=== PATIENT | female | born 2000 | race Caucasian/White ===

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

== ENCOUNTER 2019-05-10 13:19 | Emergency (ER) | payer OTHER ==
[2019-05-10 13:29] VITALS: BP 110/73; PULSE 93; RESP 17; TEMP 97.8
[2019-05-10 14:18] LABS: Basophils # (A) 0.1 k/uL (0-0.2); Basophils % (A) 1 %; Eosinophils # (A) 0.2 k/uL (0-0.7); Eosinophils % (A) 1 %; HCT 38.4 % (34.0-46.0); HGB 12.7 gm/dL (11.4-16.0); Lymphocytes # (A) 2.1 k/uL (1.0-4.8); Lymphocytes % (A) 21 %; MCH 26.6 pg (25.0-35.0); MCV 80.5 fL (80.0-100.0); Mean Platelet Volume 6.3; Monocytes # (A) 0.6 k/uL (0-1.0); Monocytes % (A) 6 %; Neutrophils # (A) 7.1 k/uL (1.3-7.7); Neutrophils % (A) 70 %; Platelet Count 335 k/uL (150-450); RBC 4.77 m/uL (3.80-5.40); RDW 14.2 % (11.5-15.5); WBC 10.2 k/uL (4.0-11.0)
--- NOTE | 2019-05-10 15:01 | ED ---
Female Urogenital HPI - General Chief complaint: Vaginal Bleeding Stated complaint: Vaginal bleeding, Dizziness Time Seen by Provider: 05/10/19 13:40 Source: patient, RN notes reviewed, old records reviewed Mode of arrival: ambulatory Limitations: no limitations - History of Present Illness Initial comments: Patient is is a 18-year-old female presents today for abnormal menstrual cycle. She reports she's been having her period since 04/26/2019. She questions if she could possibly be and is miscarriage. Patient states that she has no significant pain. She also reports a history of BV and thought that she should just treat herself her bacterial vaginosis due to his prolonged bleeding. Patient states that she has been using Flagyl gel. She denies any abdominal pain, fevers or chills or dysuria. Last Menstrual Period: 04/26/19 - Related Data Allergies Allergy/AdvReac Type Severity Reaction Status Date / Time No Known Allergies Allergy Verified 08/01/18 14:13 Review of Systems ROS Statement: Those systems with pertinent positive or pertinent negative responses have been documented in the HPI. ROS Other: All systems not noted in ROS Statement are negative. Past Medical History Past Medical History: No Reported History History of Any Multi-Drug Resistant Organisms: None Reported Past Surgical History: No Surgical Hx Reported Past Psychological History: Anxiety Smoking Status: Never smoker Past Alcohol Use History: None Reported Past Drug Use History: None Reported General Exam Limitations: no limitations General appearance: alert, in no apparent distress Head exam: Present: atraumatic, normocephalic, normal inspection Eye exam: Present: normal appearance, PERRL, EOMI. Absent: scleral icterus, conjunctival injection, periorbital swelling ENT exam: Present: normal exam, mucous membranes moist Neck exam: Present: normal inspection Respiratory exam: Present: normal lung sounds bilaterally. Absent: respiratory distress, wheezes, rales, rhonchi, stridor Cardiovascular Exam: Present: regular rate, normal rhythm, normal heart sounds. Absent: systolic murmur, diastolic murmur, rubs, gallop, clicks GI/Abdominal exam: Present: soft, normal bowel sounds. Absent: distended, tenderness, guarding, rebound, rigid External exam: Present: normal external exam Speculum exam: Present: normal speculum exam, other (Drug blood in vaginal vault.) By manual exam: Present: normal by manual exam Extremities exam: Present: normal inspection, full ROM, normal capillary refill. Absent: tenderness, pedal edema, joint swelling, calf tenderness Back exam: Present: normal inspection Neurological exam: Present: alert, oriented X3, CN II-XII intact Psychiatric exam: Present: normal affect Skin exam: Present: warm, dry, intact, normal color. Absent: rash Course Vital Signs 05/10/19 13:26 Temperature 97.8 F Pulse Rate 93 Respiratory 17 Rate Blood Pressure 110/73 O2 Sat by Pulse 98 Oximetry Medical Decision Making - Medical Decision Making Patient is a 18-year-old female presents today for concern for prolonged vaginal bleeding. At this time patient's pelvic exam did show some dry blood. But no significant tenderness. No adnexal tenderness or abnormal discharge. HCG levels negative. Discussed the Patient is not and not miscarrying. Discusses just abnormal uterine bleeding. Discussed she can follow-up with her primary care doctor and NURSING ADMINISTRATOR. Patient is agreeable treatment plan and will comply. - Lab Data Result diagrams: 05/10/19 13:55 Lab Results 05/10/19 05/10/19 05/10/19 Range/Units 13:55 13:55 13:55 WBC 10.2 (4.0-11.0) k/uL RBC 4.77 (3.80-5.40) m/uL Hgb 12.7 (11.4-16.0) gm/dL Hct 38.4 (34.0-46.0) % MCV 80.5 (80.0-100.0) fL MCH 26.6 (25.0-35.0) pg MCHC 33.0 (31.0-37.0) g/dL RDW 14.2 (11.5-15.5) % Plt Count 335 (150-450) k/uL Neutrophils % 70 % Lymphocytes % 21 % Monocytes % 6 % Eosinophils % 1 % Basophils % 1 % Neutrophils # 7.1 (1.3-7.7) k/uL Lymphocytes # 2.1 (1.0-4.8) k/uL Monocytes # 0.6 (0-1.0) k/uL Eosinophils # 0.2 (0-0.7) k/uL Basophils # 0.1 (0-0.2) k/uL HCG, Quant <2.4 mIU/mL Urine HCG, Qual (Not Detectd) Trichomonas Ag (Rapid) (Negative) Blood Type O Positive Blood Type Recheck No Previous Record Bld Type Recheck Status No 05/10/19 05/10/19 Range/Units 14:00 14:00 WBC (4.0-11.0) k/uL RBC (3.80-5.40) m/uL Hgb (11.4-16.0) gm/dL Hct (34.0-46.0) % MCV (80.0-100.0) fL MCH (25.0-35.0) pg MCHC (31.0-37.0) g/dL RDW (11.5-15.5) % Plt Count (150-450) k/uL Neutrophils % % Lymphocytes % % Monocytes % % Eosinophils % % Basophils % % Neutrophils # (1.3-7.7) k/uL Lymphocytes # (1.0-4.8) k/uL Monocytes # (0-1.0) k/uL Eosinophils # (0-0.7) k/uL Basophils # (0-0.2) k/uL HCG, Quant mIU/mL Urine HCG, Qual Not Detected (Not Detectd) Trichomonas Ag (Rapid) Negative (Negative) Blood Type Blood Type Recheck Bld Type Recheck Status Disposition Clinical Impression: Abnormal uterine bleeding, Not currently Disposition: HOME SELF-CARE Condition: Good Instructions (If sedation given, give patient instructions): Dysfunctional Uterine Bleeding (ED) Additional Instructions: Patient advised to follow-up with your primary care doctor and NURSING ADMINISTRATOR. Return to the emergency department if any alarming signs or symptoms occur. Is patient prescribed a controlled substance at d/c from ED?: No Referrals: Garth Mcrae MD [Primary Care Provider] - 1-2 days Time of Disposition: 15:01
[2019-05-12 13:11] LABS: C. trachomatis,PCR Negative (Neg,Equiv); Chlamydia trachomatis Source Vagina
[2019-05-12 13:12] LABS: N. gonorrhoeae,PCR Negative (Neg,Equiv); Neisseria Source Vagina
== END 2019-05-10 15:12 | disposition home or self-care (01) ==
LOC: EC 13:19
DX: N93.9 Abnormal uterine and vaginal bleeding, unspecified (principal); Z32.02 Encounter for pregnancy test, result negative
CPT/HCPCS: 36415; 81025; 84702; 85025; 86900; 86901; 87070; 87491; 87591; 87808; 99284

== ENCOUNTER 2019-06-21 19:40 | Emergency (ER) | payer OTHER ==
[2019-06-21] MEDS ORDERED: SODIUM CHLORIDE 0.9% 1,000 ML IV ONE (20:53)
--- NOTE | 2019-06-21 21:21 | ED ---
General Adult HPI - General Chief complaint: Vaginal Bleeding Stated complaint: Vaginal Bleeding Time Seen by Provider: 06/21/19 20:33 Source: patient Mode of arrival: ambulatory Limitations: no limitations - History of Present Illness Initial comments: 18-year-old female patient presents to the emergency department today for evaluation of heavy vaginal bleeding. Patient states his been going on since March. Patient states she was evaluated about a month ago. States she follow-up with her primary care physician and requested control however they denied her request. Patient states she is attempting to get . Did have a negative test yesterday. States today that she feels increasingly weak, fatigued, and lethargic. States she is having some mild dizziness. She is concerned she may be bleeding too much. She does report passage of small frequent blood clots. States she does have some intermittent abdominal cramping but it is managed well with naproxen. She denies any history of bleeding disorder. Denies use of anticoagulant or antiplatelet medications. - Related Data Allergies Allergy/AdvReac Type Severity Reaction Status Date / Time No Known Allergies Allergy Verified 06/21/19 19:49 Review of Systems ROS Statement: Those systems with pertinent positive or pertinent negative responses have been documented in the HPI. ROS Other: All systems not noted in ROS Statement are negative. Past Medical History Past Medical History: No Reported History History of Any Multi-Drug Resistant Organisms: None Reported Past Surgical History: No Surgical Hx Reported Past Psychological History: Anxiety, PTSD Smoking Status: Never smoker Past Alcohol Use History: None Reported Past Drug Use History: None Reported General Exam Limitations: no limitations Course Vital Signs 06/21/19 06/21/19 06/21/19 19:46 21:00 23:44 Temperature 98.0 F 97.6 F Pulse Rate 90 80 81 Respiratory 20 18 18 Rate Blood Pressure 161/89 118/62 112/72 O2 Sat by Pulse 99 100 99 Oximetry Medical Decision Making - Medical Decision Making 18-year-old female patient presents to the emergency department today for evaluation of vaginal bleeding 3 months. Physical examination revealed soft nontender abdomen. Patient skin is pink warm and dry. Labs reviewed and are u nremarkable. She is not . Ultrasound shows left ovarian cyst. No other abnormalities noted. Patient vital signs are stable. I did discuss findings and results with her. She did just start control 2 days ago. We did discuss this as a method for bleeding control. She is instructed to follow- up with gynecology for further evaluation as soon as possible. Return parameters discussed in detail. She verbalizes understanding and agrees with this plan. - Lab Data Result diagrams: 06/21/19 22:15 06/21/19 22:15 Lab Results 06/21/19 06/21/19 06/21/19 Range/Units 22:15 22:15 22:15 WBC 11.6 H (4.0-11.0) k/uL RBC 4.49 (3.80-5.40) m/uL Hgb 11.7 (11.4-16.0) gm/dL Hct 35.8 (34.0-46.0) % MCV 79.7 L (80.0-100.0) fL MCH 26.1 (25.0-35.0) pg MCHC 32.8 (31.0-37.0) g/dL RDW 14.6 (11.5-15.5) % Plt Count 382 (150-450) k/uL Neutrophils % 73 % Lymphocytes % 19 % Monocytes % 5 % Eosinophils % 1 % Basophils % 1 % Neutrophils # 8.4 H (1.3-7.7) k/uL Lymphocytes # 2.2 (1.0-4.8) k/uL Monocytes # 0.6 (0-1.0) k/uL Eosinophils # 0.1 (0-0.7) k/uL Basophils # 0.1 (0-0.2) k/uL PT (9.0-12.0) sec INR (<1.2) APTT (22.0-30.0) sec Sodium 137 (137-145) mmol/L Potassium 4.0 (3.5-5.1) mmol/L Chloride 103 (98-107) mmol/L Carbon Dioxide 27 (22-30) mmol/L Anion Gap 7 mmol/L BUN 10 (7-17) mg/dL Creatinine 0.60 (0.52-1.04) mg/dL Est GFR (CKD-EPI)AfAm >90 (>60 ml/min/1.73 sqM) Est GFR (CKD-EPI)NonAf >90 (>60 ml/min/1.73 sqM) Glucose 116 H (74-99) mg/dL Calcium 9.3 (8.4-10.2) mg/dL Total Bilirubin 0.4 (0.2-1.3) mg/dL AST 18 (14-36) U/L ALT 17 (4-34) U/L Alkaline Phosphatase 94 (38-126) U/L Total Protein 6.6 (6.3-8.2) g/dL Albumin 3.8 (3.5-5.0) g/dL Urine Color Urine Appearance (Clear) Urine pH (5.0-8.0) Ur Specific Citra (1.001-1.035) Urine Protein (Negative) Urine Glucose (UA) (Negative) Urine Ketones (Negative) Urine Blood (Negative) Urine Nitrite (Negative) Urine Bilirubin (Negative) Urine Urobilinogen (<2.0) mg/dL Ur Leukocyte Esterase (Negative) Urine RBC (0-5) /hpf Urine WBC (0-5) /hpf Ur Squamous Epith Cells (0-4) /hpf Urine Bacteria (None) /hpf Urine Mucus (None) /hpf Urine HCG, Qual Not Detected (Not Detectd) 06/21/19 06/21/19 Range/Units 22:15 22:15 WBC (4.0-11.0) k/uL RBC (3.80-5.40) m/uL Hgb (11.4-16.0) gm/dL Hct (34.0-46.0) % MCV (80.0-100.0) fL MCH (25.0-35.0) pg MCHC (31.0-37.0) g/dL RDW (11.5-15.5) % Plt Count (150-450) k/uL Neutrophils % % Lymphocytes % % Monocytes % % Eosinophils % % Basophils % % Neutrophils # (1.3-7.7) k/uL Lymphocytes # (1.0-4.8) k/uL Monocytes # (0-1.0) k/uL Eosinophils # (0-0.7) k/uL Basophils # (0-0.2) k/uL PT 10.2 (9.0-12.0) sec INR 0.9 (<1.2) APTT 25.8 (22.0-30.0) sec Sodium (137-145) mmol/L Potassium (3.5-5.1) mmol/L Chloride (98-107) mmol/L Carbon Dioxide (22-30) mmol/L Anion Gap mmol/L BUN (7-17) mg/dL Creatinine (0.52-1.04) mg/dL Est GFR (CKD-EPI)AfAm (>60 ml/min/1.73 sqM) Est GFR (CKD-EPI)NonAf (>60 ml/min/1.73 sqM) Glucose (74-99) mg/dL Calcium (8.4-10.2) mg/dL Total Bilirubin (0.2-1.3) mg/dL AST (14-36) U/L ALT (4-34) U/L Alkaline Phosphatase (38-126) U/L Total Protein (6.3-8.2) g/dL Albumin (3.5-5.0) g/dL Urine Color Yellow Urine Appearance Cloudy H (Clear) Urine pH 7.5 (5.0-8.0) Ur Specific Citra 1.011 (1.001-1.035) Urine Protein Negative (Negative) Urine Glucose (UA) Negative (Negative) Urine Ketones Negative (Negative) Urine Blood Large H (Negative) Urine Nitrite Negative (Negative) Urine Bilirubin Negative (Negative) Urine Urobilinogen <2.0 (<2.0) mg/dL Ur Leukocyte Esterase Negative (Negative) Urine RBC 26 H (0-5) /hpf Urine WBC 2 (0-5) /hpf Ur Squamous Epith Cells 6 H (0-4) /hpf Urine Bacteria Rare H (None) /hpf Urine Mucus Rare H (None) /hpf Urine HCG, Qual (Not Detectd) - Radiology Data Radiology results: report reviewed, image reviewed Ultrasound was obtained. Report reviewed in its entirety. Impression by Dr. Yanes shows no evidence of ovarian torsion. Left ovarian cyst measuring up to 2 cm. No solid adnexal mass. Small complex endocervical canal could be blood clot measuring 6 mm. Disposition Clinical Impression: Dysfunctional uterine bleeding Disposition: HOME SELF-CARE Condition: Good Instructions (If sedation given, give patient instructions): Dysfunctional Uterine Bleeding (ED) Additional Instructions: Increase fluids. Consider taking a multivitamin with iron. Follow-up with the cardiac catheterization technologist for further evaluation as soon as possible. Return to the emergency department immediately for any new, worsening, or concerning symptoms. Is patient prescribed a controlled substance at d/c from ED?: No Referrals: Clementina,Garth, MD [Primary Care Provider] - 1-2 days Time of Disposition: 23:13
[2019-06-21 22:50] LABS: Basophils # (A) 0.1 k/uL (0-0.2); Basophils % (A) 1 %; Eosinophils # (A) 0.1 k/uL (0-0.7); Eosinophils % (A) 1 %; HCT 35.8 % (34.0-46.0); HGB 11.7 gm/dL (11.4-16.0); Lymphocytes # (A) 2.2 k/uL (1.0-4.8); Lymphocytes % (A) 19 %; MCH 26.1 pg (25.0-35.0); MCHC 32.8 g/dL (31.0-37.0); MCV 79.7 fL (80.0-100.0); Mean Platelet Volume 7.1; Monocytes # (A) 0.6 k/uL (0-1.0); Monocytes % (A) 5 %; Neutrophils # (A) 8.4 k/uL (1.3-7.7); Neutrophils % (A) 73 %; Platelet Count 382 k/uL (150-450); RBC 4.49 m/uL (3.80-5.40); RDW 14.6 % (11.5-15.5); WBC 11.6 k/uL (4.0-11.0)
[2019-06-21 22:53] LABS: Appearance,Urine Cloudy (Clear); Bacteria,Urine Rare /hpf; Bilirubin,Urine Negative (Negative); Blood,Urine Large (Negative); Color,Urine Yellow; Glucose,Urine (UA) Negative (Negative); Ketones,Urine Negative (Negative); Leukocyte Esterase,Urine Negative (Negative); Mucus,Urine Rare /hpf; Nitrite,Urine Negative (Negative); PH, Urine 7.5 (5.0-8.0); Protein,Urine Negative (Negative); RBC,Urine 26 /hpf (0-5); Specific Gravity,Urine 1.011 (1.001-1.035); Squamous Epithelial Cell,Urine 6 /hpf (0-4); Urobilinogen,Urine <2.0 mg/dL (<2.0); WBC,Urine 2 /hpf (0-5)
[2019-06-21 22:58] LABS: INR 0.9 (<1.2); Partial Thromboplastin Time 25.8 sec (22.0-30.0); Prothrombin Time 10.2 sec (9.0-12.0)
--- NOTE | 2019-06-21 23:01 | US ---
EXAMINATION TYPE: US transvaginal DATE OF EXAM: 06/21/2019 COMPARISON: NONE CLINICAL HISTORY: Vaginal bleeding. Vaginal bleeding x 3 months. Hx 2 miscarriages. LMP unknown. G2 P 0 A2. TECHNIQUE: Transvaginal (TV). Date of LMP: Unknown EXAM MEASUREMENTS: Uterus: 6.8 x 5.3 x 4.5 cm Endometrial Stripe: 0.48 cm Right Ovary: 3.4 x 2.2 x 2.3 cm Left Ovary: 3.3 x 2.9 x 3.2 cm 1. Uterus: Retroverted Complex area seen in the NORA measurin.7 x 0.7 x 0.7 cm. 2. Endometrium: Appears to be wnl 3. Right Ovary: Follicles seen 4. Left Ovary: Multiple anechoic areas seen. Largest measures: 1.7 x 1.4 x 2.4 cm. Spectral, color and waveform doppler imaging shows arterial and venous flow within the right ovary. Arterial flow seen in the left ovary. Limited evaluation of venous flow possibly due to position of ovary posterior to the uterus. 5. Bilateral Adnexa: Appear wnl 6. Posterior cul-de-sac: Fluid seen IMPRESSION: No evidence of ovarian torsion. Left ovary and cyst measure up to 2 cm. No solid adnexal mass. Small complex area in the cervical canal could be blood clot that measures 6 mm.
[2019-06-21 23:04] LABS: ALT 17 U/L (4-34); AST 18 U/L (14-36); African American GFR (CKD) >90 (>60 ml/min/1.73 sqM); Albumin 3.8 g/dL (3.5-5.0); Alkaline Phosphatase 94 U/L (38-126); Anion Gap 7 mmol/L; Blood Urea Nitrogen 10 mg/dL (7-17); Calcium 9.3 mg/dL (8.4-10.2); Carbon Dioxide 27 mmol/L (22-30); Chloride 103 mmol/L (98-107); Glucose 116 mg/dL (74-99); Non-African American GFR(CKD) >90 (>60 ml/min/1.73 sqM); Sodium 137 mmol/L (137-145); Total Bilirubin 0.4 mg/dL (0.2-1.3); Total Protein 6.6 g/dL (6.3-8.2)
[2019-06-21 23:44] VITALS: RESP 18; TEMP 97.6
[2019-06-21 23:45] VITALS: BP 112/72; PULSE 81
== END 2019-06-21 23:31 | disposition home or self-care (01) ==
LOC: EC 19:40
DX: N93.8 Other specified abnormal uterine and vaginal bleeding (principal); N83.202 Unspecified ovarian cyst, left side; R53.1 Weakness; Z79.3 Long term (current) use of hormonal contraceptives
CPT/HCPCS: 36415; 76830; 80053; 81001; 81025; 85025; 85610; 85730; 93975; 96360; 99284

== ENCOUNTER 2019-11-04 17:54 | Emergency (ER) | payer OTHER ==
[2019-11-04] MEDS ORDERED: LORazepam 1 MG TAB PO STA (18:34)
--- NOTE | 2019-11-04 18:38 | ED ---
General Adult HPI - General Chief complaint: Chest Pain Stated complaint: SOB/heart spasms Time Seen by Provider: 11/04/19 18:11 Source: patient, RN notes reviewed, old records reviewed Mode of arrival: ambulatory Limitations: no limitations - History of Present Illness Initial comments: 19-year-old female patient with the for evaluation of palpitations shortness of breath anxiety. 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 Patient reports that she then became very anxious and started having heart palpitations. At time of evaluation patient states that she is feeling much better however still feeling anxious. Systemic: Pt denies fatigue, fever/chills, rash. Pt denies weakness, night sweats, weight loss. Neuro: Pt denies headache, visual disturbances, syncope or pre-syncope. HEENT: Pt denies ocular discharge or irritation, otalgia, rhinorrhea, pharyngitis or notable lymphadenopathy. Cardiopulmonary: Pt denies chest pain,dyspnea on exertion. Abdominal/GI: Pt denies abdominal pain, n/v/d. : Pt denies dysuria, burning w/ urination, frequency/urgency. Denies new onset urinary or bowel incontinence. MSK: Pt denies myalgia, loss of strength or function in extremities. Neuro: Pt denies new onset weakness, paresthesias. - Related Data Allergies Allergy/AdvReac Type Severity Reaction Status Date / Time No Known Allergies Allergy Verified 11/04/19 18:05 Review of Systems ROS Statement: Those systems with pertinent positive or pertinent negative responses have been documented in the HPI. ROS Other: All systems not noted in ROS Statement are negative. Past Medical History Past Medical History: No Reported History History of Any Multi-Drug Resistant Organisms: None Reported Past Surgical History: No Surgical Hx Reported Past Psychological History: Anxiety, PTSD Smoking Status: Never smoker Past Alcohol Use History: None Reported Past Drug Use History: None Reported General Exam - General Exam Comments Initial Comments: Constitutional: NAD, AOX3, Pt has pleasant affect. HEENT: NC/AT, trachea midline, neck supple, no lymphadenopathy. Posterior pharynx non erythematous, without exudates. External ears appear normal, without discharge. Mucous membranes moist. Eyes PERRLA, EOM intact. There is no scleral icterus. No pallor noted. Cardiopulmonary: RRR, no murmurs, rubs or gallops, no JVD noted. Lungs CTAB in anterior and posterior frye. No peripheral edema. Abdominal exam: Abdomen soft and non-distended. Abdomen non-tender to palpation in all 4 quadrants. Bowel sounds active in LLQ. No hepatosplenomegaly. No ecchymosis Neuro: CN II-XII grossly intact. No nuchal rigidity. No raccon eyes, no avina sign, no hemotympanum. No cervical spinal tenderness. MSK: No posterior calf tenderness bilaterally, homans sign negative bilaterally. Posterior tibialis and radial pulse +2 bilaterally. Sensation intact in upper and lower extremities. Full active ROM in upper and lower extremities, 5/5 stregnth. Limitations: no limitations Course Vital Signs 11/04/19 11/04/19 18:05 18:37 Temperature 98.8 F Pulse Rate 93 Respiratory 22 16 Rate Blood Pressure 129/79 O2 Sat by Pulse 100 Oximetry Medical Decision Making - Medical Decision Making 19-year-old female patient with the for evaluation of palpitations shortness of breath anxiety. 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 Patient reports that she then became very anxious and started having heart palpitations. At time of evaluation patient states that she is feeling much better however still feeling anxious. Patient also has a stable, afebrile. Physical exam didn't display acute pathology. Laboratory investigations revealed negative d-dimer negative for pulmonary hCG is negative. EKG displayed a ventricular rate 85 Year and 148, QRS 98, QT/QTC 384 since 456. Normal sensory rhythm, incomplete right branch block. Cannot rule out anterior infarct age undetermined. Patient asymptomatic in room. Discharged to follow up with primary care provider will return to ER if worsens. Case discussed with Dr. Milian. - Lab Data Result diagrams: 11/04/19 20:42 11/04/19 20:42 Lab Results 11/04/19 11/04/19 11/04/19 Range/Units 20:42 20:42 20:42 WBC 10.3 (4.0-11.0) k/uL RBC 4.79 (3.80-5.40) m/uL Hgb 12.3 (11.4-16.0) gm/dL Hct 38.2 (34.0-46.0) % MCV 79.6 L (80.0-100.0) fL MCH 25.6 (25.0-35.0) pg MCHC 32.2 (31.0-37.0) g/dL RDW 15.2 (11.5-15.5) % Plt Count 339 (150-450) k/uL Neutrophils % 77 % Lymphocytes % 17 % Monocytes % 4 % Eosinophils % 1 % Basophils % 0 % Neutrophils # 7.9 H (1.3-7.7) k/uL Lymphocytes # 1.8 (1.0-4.8) k/uL Monocytes # 0.4 (0-1.0) k/uL Eosinophils # 0.1 (0-0.7) k/uL Basophils # 0.0 (0-0.2) k/uL Hypochromasia Slight D-Dimer <0.17 (<0.60) mg/L FEU Sodium 138 (137-145) mmol/L Potassium 4.2 (3.5-5.1) mmol/L Chloride 105 (98-107) mmol/L Carbon Dioxide 24 (22-30) mmol/L Anion Gap 9 mmol/L BUN 13 (7-17) mg/dL Creatinine 0.77 (0.52-1.04) mg/dL Est GFR (CKD-EPI)AfAm >90 (>60 ml/min/1.73 sqM) Est GFR (CKD-EPI)NonAf >90 (>60 ml/min/1.73 sqM) Glucose 104 H (74-99) mg/dL Calcium 9.4 (8.4-10.2) mg/dL Total Bilirubin 0.1 L (0.2-1.3) mg/dL AST 15 (14-36) U/L ALT 15 (4-34) U/L Alkaline Phosphatase 85 (38-126) U/L Troponin I (0.000-0.034) ng/mL Total Protein 6.7 (6.3-8.2) g/dL Albumin 3.7 (3.5-5.0) g/dL Urine HCG, Qual (Not Detectd) 11/04/19 11/04/19 Range/Units 20:42 21:18 WBC (4.0-11.0) k/uL RBC (3.80-5.40) m/uL Hgb (11.4-16.0) gm/dL Hct (34.0-46.0) % MCV (80.0-100.0) fL MCH (25.0-35.0) pg MCHC (31.0-37.0) g/dL RDW (11.5-15.5) % Plt Count (150-450) k/uL Neutrophils % % Lymphocytes % % Monocytes % % Eosinophils % % Basophils % % Neutrophils # (1.3-7.7) k/uL Lymphocytes # (1.0-4.8) k/uL Monocytes # (0-1.0) k/uL Eosinophils # (0-0.7) k/uL Basophils # (0-0.2) k/uL Hypochromasia D-Dimer (<0.60) mg/L FEU Sodium (137-145) mmol/L Potassium (3.5-5.1) mmol/L Chloride (98-107) mmol/L Carbon Dioxide (22-30) mmol/L Anion Gap mmol/L BUN (7-17) mg/dL Creatinine (0.52-1.04) mg/dL Est GFR (CKD-EPI)AfAm (>60 ml/min/1.73 sqM) Est GFR (CKD-EPI)NonAf (>60 ml/min/1.73 sqM) Glucose (74-99) mg/dL Calcium (8.4-10.2) mg/dL Total Bilirubin (0.2-1.3) mg/dL AST (14-36) U/L ALT (4-34) U/L Alkaline Phosphatase (38-126) U/L Troponin I <0.012 (0.000-0.034) ng/mL Total Protein (6.3-8.2) g/dL Albumin (3.5-5.0) g/dL Urine HCG, Qual Not Detected (Not Detectd) Disposition Clinical Impression: Acute anxiety Disposition: HOME SELF-CARE Condition: Stable Instructions (If sedation given, give patient instructions): Generalized Anxiety Disorder (ED) Additional Instructions: Follow-up with primary care provider tomorrow. Return to ER if condition worsens. Is patient prescribed a controlled substance at d/c from ED?: No Referrals: Garth Mcrae MD [Primary Care Provider] - 1-2 days
--- NOTE | 2019-11-04 19:36 | XR ---
EXAMINATION TYPE: XR chest 2V DATE OF EXAM: 11/04/2019 COMPARISON: NONE HISTORY: Shortest of breath TECHNIQUE: Frontal and lateral views of the chest are obtained. FINDINGS: There is no focal air space opacity, pleural effusion, or pneumothorax seen. Slight right hemidiaphragm elevation is seen that could be physiologic or related to hepatomegaly. The cardiac si lhouette size is within normal limits. The osseous structures are intact. IMPRESSION: No acute cardiopulmonary process.
[2019-11-04 20:51] LABS: Basophils % (A) 0 %; Eosinophils # (A) 0.1 k/uL (0-0.7); Eosinophils % (A) 1 %; HCT 38.2 % (34.0-46.0); HGB 12.3 gm/dL (11.4-16.0); Hypochromasia Slight; Lymphocytes # (A) 1.8 k/uL (1.0-4.8); Lymphocytes % (A) 17 %; MCH 25.6 pg (25.0-35.0); MCHC 32.2 g/dL (31.0-37.0); MCV 79.6 fL (80.0-100.0); Mean Platelet Volume 7.2; Monocytes # (A) 0.4 k/uL (0-1.0); Monocytes % (A) 4 %; Neutrophils # (A) 7.9 k/uL (1.3-7.7); Neutrophils % (A) 77 %; Platelet Count 339 k/uL (150-450); RBC 4.79 m/uL (3.80-5.40); RDW 15.2 % (11.5-15.5); WBC 10.3 k/uL (4.0-11.0)
[2019-11-04 21:03] LABS: ALT 15 U/L (4-34); AST 15 U/L (14-36); African American GFR (CKD) >90 (>60 ml/min/1.73 sqM); Albumin 3.7 g/dL (3.5-5.0); Alkaline Phosphatase 85 U/L (38-126); Anion Gap 9 mmol/L; Blood Urea Nitrogen 13 mg/dL (7-17); Calcium 9.4 mg/dL (8.4-10.2); Carbon Dioxide 24 mmol/L (22-30); Chloride 105 mmol/L (98-107); Glucose 104 mg/dL (74-99); Non-African American GFR(CKD) >90 (>60 ml/min/1.73 sqM); Potassium 4.2 mmol/L (3.5-5.1); Sodium 138 mmol/L (137-145); Total Bilirubin 0.1 mg/dL (0.2-1.3); Total Protein 6.7 g/dL (6.3-8.2)
[2019-11-04 22:38] VITALS: BP 104/67; PULSE 87; RESP 18; TEMP 98
== END 2019-11-04 22:38 | disposition home or self-care (01) ==
LOC: EC 17:54
DX: F41.9 Anxiety disorder, unspecified (principal)
CPT/HCPCS: 36415; 71046; 80053; 81025; 84484; 85025; 85379; 99285

== ENCOUNTER 2021-04-30 11:23 | Emergency (ER) | payer OTHER ==
[2021-04-30 12:44] LABS: Appearance,Urine Clear (Clear); Bilirubin,Urine Negative (Negative); Blood,Urine Large (Negative); Color,Urine Yellow; Glucose,Urine (UA) Negative (Negative); Ketones,Urine Negative (Negative); Leukocyte Esterase,Urine Negative (Negative); Mucus,Urine Rare /hpf; Nitrite,Urine Negative (Negative); PH, Urine 5.5 (5.0-8.0); Protein,Urine Negative (Negative); RBC,Urine 6 /hpf (0-5); Specific Gravity,Urine 1.023 (1.001-1.035); Squamous Epithelial Cell,Urine 3 /hpf (0-4); Urobilinogen,Urine <2.0 mg/dL (<2.0); WBC,Urine 1 /hpf (0-5)
--- NOTE | 2021-04-30 14:34 | ED ---
General Adult HPI - General Chief complaint: Vaginal Bleeding Stated complaint: Female Time Seen by Provider: 04/30/21 13:54 Source: patient, RN notes reviewed Mode of arrival: EMS Limitations: no limitations - History of Present Illness Initial comments: 20-year-old female presents emergency from chief complaint of vaginal bleeding. Patient states that she's had issues since March 14 with continuous bleeding. She states that does wax and wane patient had issues like this in the past which she follow-up with the health Department next started her on control. It did subside. Patient states she recently stopped taking her control secondary to 1 started family. Patient is having intermittent abdominal cramping mild dysuria. No vaginal discharge. - Related Data Home Medications Medication Instructions Recorded Confirmed Ibuprofen [Motrin] 800 mg PO Q8H 04/30/21 04/30/21 Levothyroxine Sodium [Synthroid] 25 mcg PO DAILY 04/30/21 04/30/21 Previous Rx's Medication Instructions Recorded Medroxyprogesterone Acetate 10 mg PO DAILY #4 tab 04/30/21 [Provera] Allergies Allergy/AdvReac Type Severity Reaction Status Date / Time acetaminophen [From Tylenol] AdvReac "PASSES Verified 04/30/21 14:19 OUT" Review of Systems ROS Statement: Those systems with pertinent positive or pertinent negative responses have been documented in the HPI. ROS Other: All systems not noted in ROS Statement are negative. Past Medical History Past Medical History: Thyroid Disorder History of Any Multi-Drug Resistant Organisms: None Reported Past Surgical History: No Surgical Hx Reported Past Psychological History: Anxiety, PTSD Smoking Status: Vaper Past Alcohol Use History: None Reported Past Drug Use History: None Reported General Exam Limitations: no limitations General appearance: alert, in no apparent distress Head exam: Present: atraumatic, normocephalic, normal inspection Eye exam: Present: normal appearance, PERRL, EOMI. Absent: scleral icterus, conjunctival injection, periorbital swelling ENT exam: Present: normal exam, mucous membranes moist Neck exam: Present: normal inspection, full ROM. Absent: tenderness, meningismus, lymphadenopathy Respiratory exam: Present: normal lung sounds bilaterally. Absent: respiratory distress, wheezes, rales, rhonchi, stridor Cardiovascular Exam: Present: regular rate, normal rhythm, normal heart sounds. Absent: systolic murmur, diastolic murmur, rubs, gallop, clicks GI/Abdominal exam: Present: soft, normal bowel sounds. Absent: distended, tenderness, guarding, rebound, rigid Course Vital Signs 04/30/21 12:19 Temperature 97.5 F L Pulse Rate 63 Respiratory 20 Rate Blood Pressure 107/60 O2 Sat by Pulse 96 Oximetry Medical Decision Making - Medical Decision Making 20-year-old female presented for dysfunctional uterine bleeding. This has been present for over 6 weeks. Patient's hemoglobin is stable. Patient wasn't -control prior which helped. 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 - Lab Data Result diagrams: 04/30/21 15:15 04/30/21 15:15 Lab Results 04/30/21 04/30/21 04/30/21 Range/Units 12:29 12:29 15:15 WBC 11.4 H (3.8-10.6) k/uL RBC 4.63 (3.80-5.40) m/uL Hgb 12.5 (11.4-16.0) gm/dL Hct 37.8 (34.0-46.0) % MCV 81.6 (80.0-100.0) fL MCH 27.1 (25.0-35.0) pg MCHC 33.2 (31.0-37.0) g/dL RDW 14.6 (11.5-15.5) % Plt Count 301 (150-450) k/uL MPV 7.1 Neutrophils % 69 % Lymphocytes % 25 % Monocytes % 4 % Eosinophils % 1 % Basophils % 1 % Neutrophils # 7.8 H (1.3-7.7) k/uL Lymphocytes # 2.8 (1.0-4.8) k/uL Monocytes # 0.4 (0-1.0) k/uL Eosinophils # 0.1 (0-0.7) k/uL Basophils # 0.1 (0-0.2) k/uL Sodium (137-145) mmol/L Potassium (3.5-5.1) mmol/L Chloride (98-107) mmol/L Carbon Dioxide (22-30) mmol/L Anion Gap mmol/L BUN (7-17) mg/dL Creatinine (0.52-1.04) mg/dL Est GFR (CKD-EPI)AfAm (>60 ml/min/1.73 sqM) Est GFR (CKD-EPI)NonAf (>60 ml/min/1.73 sqM) Glucose (74-99) mg/dL Calcium (8.4-10.2) mg/dL Total Bilirubin (0.2-1.3) mg/dL AST (14-36) U/L ALT (4-34) U/L Alkaline Phosphatase (38-126) U/L Total Protein (6.3-8.2) g/dL Albumin (3.5-5.0) g/dL Urine Color Yellow Urine Appearance Clear (Clear) Urine pH 5.5 (5.0-8.0) Ur Specific [place] 1.023 (1.001-1.035) Urine Protein Negative (Negative) Urine Glucose (UA) Negative (Negative) Urine Ketones Negative (Negative) Urine Blood Large H (Negative) Urine Nitrite Negative (Negative) Urine Bilirubin Negative (Negative) Urine Urobilinogen <2.0 (<2.0) mg/dL Ur Leukocyte Esterase Negative (Negative) Urine RBC 6 H (0-5) /hpf Urine WBC 1 (0-5) /hpf Ur Squamous Epith Cells 3 (0-4) /hpf Urine Mucus Rare H (None) /hpf Urine HCG, Qual Not Detected (Not Detectd) 04/30/21 Range/Units 15:15 WBC (3.8-10.6) k/uL RBC (3.80-5.40) m/uL Hgb (11.4-16.0) gm/dL Hct (34.0-46.0) % MCV (80.0-100.0) fL MCH (25.0-35.0) pg MCHC (31.0-37.0) g/dL RDW (11.5-15.5) % Plt Count (150-450) k/uL MPV Neutrophils % % Lymphocytes % % Monocytes % % Eosinophils % % Basophils % % Neutrophils # (1.3-7.7) k/uL Lymphocytes # (1.0-4.8) k/uL Monocytes # (0-1.0) k/uL Eosinophils # (0-0.7) k/uL Basophils # (0-0.2) k/uL Sodium 134 L (137-145) mmol/L Potassium 3.8 (3.5-5.1) mmol/L Chloride 101 (98-107) mmol/L Carbon Dioxide 26 (22-30) mmol/L Anion Gap 7 mmol/L BUN 11 (7-17) mg/dL Creatinine 0.55 (0.52-1.04) mg/dL Est GFR (CKD-EPI)AfAm >90 (>60 ml/min/1.73 sqM) Est GFR (CKD-EPI)NonAf >90 (>60 ml/min/1.73 sqM) Glucose 97 (74-99) mg/dL Calcium 9.0 (8.4-10.2) mg/dL Total Bilirubin 0.3 (0.2-1.3) mg/dL AST 19 (14-36) U/L ALT 21 (4-34) U/L Alkaline Phosphatase 86 (38-126) U/L Total Protein 6.6 (6.3-8.2) g/dL Albumin 3.7 (3.5-5.0) g/dL Urine Color Urine Appearance (Clear) Urine pH (5.0-8.0) Ur Specific [place] (1.001-1.035) Urine Protein (Negative) Urine Glucose (UA) (Negative) Urine Ketones (Negative) Urine Blood (Negative) Urine Nitrite (Negative) Urine Bilirubin (Negative) Urine Urobilinogen (<2.0) mg/dL Ur Leukocyte Esterase (Negative) Urine RBC (0-5) /hpf Urine WBC (0-5) /hpf Ur Squamous Epith Cells (0-4) /hpf Urine Mucus (None) /hpf Urine HCG, Qual (Not Detectd) Disposition Clinical Impression: Dysfunctional uterine bleeding Disposition: HOME SELF-CARE Condition: Stable Instructions (If sedation given, give patient instructions): Dysfunctional Uterine Bleeding (ED) Additional Instructions: Please return to the Emergency Department if symptoms worsen or any other ana rns. Prescriptions: Medroxyprogesterone Acetate [Provera] 10 mg PO DAILY #4 tab Is patient prescribed a controlled substance at d/c from ED?: No Referrals: Arabella Harrison MD [Primary Care Provider] - 1-2 days Time of Disposition: 16:00
[2021-04-30 15:29] LABS: Basophils # (A) 0.1 k/uL (0-0.2); Basophils % (A) 1 %; Eosinophils # (A) 0.1 k/uL (0-0.7); Eosinophils % (A) 1 %; HCT 37.8 % (34.0-46.0); HGB 12.5 gm/dL (11.4-16.0); Lymphocytes # (A) 2.8 k/uL (1.0-4.8); Lymphocytes % (A) 25 %; MCH 27.1 pg (25.0-35.0); MCHC 33.2 g/dL (31.0-37.0); MCV 81.6 fL (80.0-100.0); Mean Platelet Volume 7.1; Monocytes # (A) 0.4 k/uL (0-1.0); Monocytes % (A) 4 %; Neutrophils # (A) 7.8 k/uL (1.3-7.7); Neutrophils % (A) 69 %; Platelet Count 301 k/uL (150-450); RBC 4.63 m/uL (3.80-5.40); RDW 14.6 % (11.5-15.5); WBC 11.4 k/uL (3.8-10.6)
[2021-04-30 15:45] LABS: ALT 21 U/L (4-34); AST 19 U/L (14-36); African American GFR (CKD) >90 (>60 ml/min/1.73 sqM); Albumin 3.7 g/dL (3.5-5.0); Alkaline Phosphatase 86 U/L (38-126); Anion Gap 7 mmol/L; Blood Urea Nitrogen 11 mg/dL (7-17); Carbon Dioxide 26 mmol/L (22-30); Chloride 101 mmol/L (98-107); Glucose 97 mg/dL (74-99); Non-African American GFR(CKD) >90 (>60 ml/min/1.73 sqM); Potassium 3.8 mmol/L (3.5-5.1); Sodium 134 mmol/L (137-145); Total Bilirubin 0.3 mg/dL (0.2-1.3); Total Protein 6.6 g/dL (6.3-8.2)
--- NOTE | 2021-04-30 15:45 | US ---
EXAMINATION TYPE: US transvaginal Plus Dopplers DATE OF EXAM: 04/30/2021 COMPARISON: NONE CLINICAL HISTORY: 20-year-old female abnormal bleeding. Heavy bleeding since 03/14/2021, history of h eavy/irregular menstruation. TECHNIQUE: Transvaginal sonographic images were medically necessary to better assess the following an atomy: Ovaries. Color Doppler and spectral waveform analysis of the ovarian arteries and veins. Date of LMP: 03/14/2021 FINDINGS: EXAM MEASUREMENTS: Uterus: 7.1 x 5.2 x 4.3 cm Endometrial Stripe: 0.9 cm Right Ovary: 3.23 x 2.6 x 2.8 cm Left Ovary: 2.9 x 2.3 x 1.7 cm 1. Uterus: Retroverted an otherwise wnl 2. Endometrium: wnl 3. Right Ovary: A 2.1 cm dominant follicle with a cumulus oophorus is present. 4. Left Ovary: wnl Spectral, color and waveform doppler imaging shows good arterial and venous flow within the ovaries ; there is no evidence for ovarian torsion. 5. Bilateral Adnexa: wnl 6. Posterior cul-de-sac: wnl IMPRESSION: 1. No sonographic evidence for ovarian torsion. 2. A 2.1 cm dominant follicle of the right ovary. 3. Retroverted uterus.
[2021-04-30 16:30] VITALS: BP 110/68; PULSE 72; RESP 17; TEMP 97.8
== END 2021-04-30 16:28 | disposition home or self-care (01) ==
LOC: EC 11:23
DX: N93.8 Other specified abnormal uterine and vaginal bleeding (principal); F17.290 Nicotine dependence, other tobacco product, uncomplicated
CPT/HCPCS: 36415; 76830; 80053; 81001; 81025; 85025; 93975; 99284

== ENCOUNTER 2021-05-11 21:12 | Emergency (ER) | payer OTHER ==
[2021-05-11 23:09] VITALS: BP 110/57; PULSE 92; RESP 18; TEMP 98
--- NOTE | 2021-05-11 23:10 | ED ---
General Adult HPI - General Stated complaint: Heavy bleeding Time Seen by Provider: 05/11/21 23:04 - History of Present Illness Initial comments: Seen for purposes of ATP: 20 year-old female patient presents for evaluation of heavy vaginal bleeding. States she has been having bleeding for the last 8 weeks. Was seen here 11 days ago and put on depo provera for four days. States she did see her primary care physician since then who started her on c ontrol. Started taking it two days ago. She states this made her bleeding worse. Reports mild abdominal cramping. Denies fever or chills. Reports headache throughout the day. States she has been fatigued. Reports mild dizziness. Soaked through one pad all day today. Did have negative test at [facility] today. - Related Data Home Medications Medication Instructions Recorded Confirmed Ibuprofen [Motrin] 800 mg PO Q8H 04/30/21 04/30/21 Levothyroxine Sodium [Synthroid] 25 mcg PO DAILY 04/30/21 04/30/21 Previous Rx's Medication Instructions Recorded Medroxyprogesterone Acetate 10 mg PO DAILY #4 tab 04/30/21 [Provera] Allergies Allergy/AdvReac Type Severity Reaction Status Date / Time acetaminophen [From Tylenol] AdvReac "PASSES Verified 05/11/21 23:09 OUT" Review of Systems ROS Statement: Those systems with pertinent positive or pertinent negative responses have been documented in the HPI. ROS Other: All systems not noted in ROS Statement are negative. Past Medical History Past Medical History: Thyroid Disorder History of Any Multi-Drug Resistant Organisms: None Reported Past Surgical History: No Surgical Hx Reported Past Psychological History: Anxiety, PTSD Smoking Status: Vaper Past Alcohol Use History: None Reported Past Drug Use History: None Reported General Exam General appearance: alert, in no apparent distress ENT exam: Present: normal exam, normal oropharynx, mucous membranes moist Respiratory exam: Present: normal lung sounds bilaterally. Absent: respiratory distress, wheezes, rales, rhonchi, stridor Cardiovascular Exam: Present: regular rate, normal rhythm, normal heart sounds. Absent: systolic murmur, diastolic murmur, rubs, gallop, clicks GI/Abdominal exam: Present: soft, normal bowel sounds. Absent: distended, tenderness, guarding, rebound, rigid Neurological exam: Present: alert, oriented X3, CN II-XII intact Psychiatric exam: Present: normal affect, normal mood Skin exam: Present: warm, dry, intact, normal color. Absent: rash Course Vital Signs 05/11/21 23:03 Temperature 98.0 F Pulse Rate 92 Respiratory 18 Rate Blood Pressure 110/57 O2 Sat by Pulse 97 Oximetry Medical Decision Making - Medical Decision Making 20-year-old female patient presents to the emergency department today for evaluation of persistent vaginal bleeding. Has been having vaginal bleeding for the last 8 weeks. Did see her primary care physician was started on a new control. She is taken for 2 days and states that her bleeding seems worsening. She has been passing course size clots. Was wearing the same pad all day, did not soak through. She denies physical examination is unremarkable. Vital signs are normal. I did discuss results of labs with her which included a normal and stable hemoglobin. She'll be discharged follow up with OUTPATIENT SCHEDULER for recheck as soon as possible. She is instructed to continue the current control regimen. Return parameters were discussed in detail. She verbalizes understanding and agrees with this plan. My attending is Dr. Foss. - Lab Data Result diagrams: 05/11/21 23:18 Lab Results 05/11/21 05/11/21 05/11/21 Range/Units 23:15 23:18 23:18 WBC 12.9 H (3.8-10.6) k/uL RBC 4.38 (3.80-5.40) m/uL Hgb 12.1 (11.4-16.0) gm/dL Hct 35.0 (34.0-46.0) % MCV 79.8 L (80.0-100.0) fL MCH 27.7 (25.0-35.0) pg MCHC 34.6 (31.0-37.0) g/dL RDW 14.5 (11.5-15.5) % Plt Count 318 (150-450) k/uL MPV 7.1 Neutrophils % 69 % Lymphocytes % 25 % Monocytes % 4 % Eosinophils % 1 % Basophils % 0 % Neutrophils # 8.9 H (1.3-7.7) k/uL Lymphocytes # 3.2 (1.0-4.8) k/uL Monocytes # 0.5 (0-1.0) k/uL Eosinophils # 0.2 (0-0.7) k/uL Basophils # 0.1 (0-0.2) k/uL PT 10.3 (9.0-12.0) sec INR 1.0 (<1.2) APTT 23.4 (22.0-30.0) sec Urine Color Urine Appearance (Clear) Urine pH (5.0-8.0) Ur Specific [place] (1.001-1.035) Urine Protein (Negative) Urine Glucose (UA) (Negative) Urine Ketones (Negative) Urine Blood (Negative) Urine Nitrite (Negative) Urine Bilirubin (Negative) Urine Urobilinogen (<2.0) mg/dL Ur Leukocyte Esterase (Negative) Urine RBC (0-5) /hpf Urine WBC (0-5) /hpf Ur Squamous Epith Cells (0-4) /hpf Urine Mucus (None) /hpf Urine HCG, Qual (Not Detectd) Blood Type O Positive Blood Type Recheck O Pos Bld Type Recheck Status No Antibody Screen NEGATIVE Spec Expiration Date 05/14/2021 - 231405/11/21 05/11/21 Range/Units 23:31 23:31 WBC (3.8-10.6) k/uL RBC (3.80-5.40) m/uL Hgb (11.4-16.0) gm/dL Hct (34.0-46.0) % MCV (80.0-100.0) fL MCH (25.0-35.0) pg MCHC (31.0-37.0) g/dL RDW (11.5-15.5) % Plt Count (150-450) k/uL MPV Neutrophils % % Lymphocytes % % Monocytes % % Eosinophils % % Basophils % % Neutrophils # (1.3-7.7) k/uL Lymphocytes # (1.0-4.8) k/uL Monocytes # (0-1.0) k/uL Eosinophils # (0-0.7) k/uL Basophils # (0-0.2) k/uL PT (9.0-12.0) sec INR (<1.2) APTT (22.0-30.0) sec Urine Color Light Red Urine Appearance Clear (Clear) Urine pH 5.5 (5.0-8.0) Ur Specific [place] 1.022 (1.001-1.035) Urine Protein 1+ H (Negative) Urine Glucose (UA) Negative (Negative) Urine Ketones Negative (Negative) Urine Blood Large H (Negative) Urine Nitrite Negative (Negative) Urine Bilirubin Negative (Negative) Urine Urobilinogen <2.0 (<2.0) mg/dL Ur Leukocyte Esterase Moderate H (Negative) Urine RBC >182 H (0-5) /hpf Urine WBC 166 H (0-5) /hpf Ur Squamous Epith Cells 5 H (0-4) /hpf Urine Mucus Rare H (None) /hpf Urine HCG, Qual Not Detected (Not Detectd) Blood Type Blood Type Recheck Bld Type Recheck Status Antibody Screen Spec Expiration Date Disposition Clinical Impression: Dysfunctional uterine bleeding Disposition: HOME SELF-CARE Condition: Good Instructions (If sedation given, give patient instructions): Dysfunctional Uterine Bleeding (ED) Additional Instructions: Follow up with the OBGYN as soon as possible. Return if you have increased bleeding like soaking through a pad every hour. Return for any fainting. Follow up with your primary care physician for recheck in 1-2 days. Is patient prescribed a controlled substance at d/c from ED?: No Referrals: Arabella Harrison MD [Primary Care Provider] - 1-2 days Time of Disposition: 00:51
[2021-05-11 23:33] LABS: Basophils # (A) 0.1 k/uL (0-0.2); Basophils % (A) 0 %; Eosinophils # (A) 0.2 k/uL (0-0.7); Eosinophils % (A) 1 %; HGB 12.1 gm/dL (11.4-16.0); Lymphocytes # (A) 3.2 k/uL (1.0-4.8); Lymphocytes % (A) 25 %; MCH 27.7 pg (25.0-35.0); MCHC 34.6 g/dL (31.0-37.0); MCV 79.8 fL (80.0-100.0); Mean Platelet Volume 7.1; Monocytes # (A) 0.5 k/uL (0-1.0); Monocytes % (A) 4 %; Neutrophils # (A) 8.9 k/uL (1.3-7.7); Neutrophils % (A) 69 %; Platelet Count 318 k/uL (150-450); RBC 4.38 m/uL (3.80-5.40); RDW 14.5 % (11.5-15.5); WBC 12.9 k/uL (3.8-10.6)
[2021-05-11 23:55] LABS: Appearance,Urine Clear (Clear); Bilirubin,Urine Negative (Negative); Blood,Urine Large (Negative); Color,Urine Light Red; Glucose,Urine (UA) Negative (Negative); Ketones,Urine Negative (Negative); Leukocyte Esterase,Urine Moderate (Negative); Mucus,Urine Rare /hpf; Nitrite,Urine Negative (Negative); PH, Urine 5.5 (5.0-8.0); Protein,Urine 1+ (Negative); RBC,Urine >182 /hpf (0-5); Specific Gravity,Urine 1.022 (1.001-1.035); Squamous Epithelial Cell,Urine 5 /hpf (0-4); Urobilinogen,Urine <2.0 mg/dL (<2.0); WBC,Urine 166 /hpf (0-5)
[2021-05-12 00:06] LABS: Partial Thromboplastin Time 23.4 sec (22.0-30.0); Prothrombin Time 10.3 sec (9.0-12.0)
== END 2021-05-12 01:02 | disposition home or self-care (01) ==
LOC: EC 21:12
DX: N93.8 Other specified abnormal uterine and vaginal bleeding (principal); F41.9 Anxiety disorder, unspecified; F43.10 Post-traumatic stress disorder, unspecified; F17.290 Nicotine dependence, other tobacco product, uncomplicated
CPT/HCPCS: 36415; 81001; 81025; 85025; 85610; 85730; 86850; 86900; 86901; 87086; 99284

== ENCOUNTER 2021-07-03 18:55 | Emergency (ER) | payer OTHER ==
[2021-07-03 19:08] VITALS: RESP 16; TEMP 98.4
--- NOTE | 2021-07-03 19:24 | ED ---
Recheck HPI - General Chief Complaint: Recheck/Abnormal Lab/Rx Stated Complaint: covid test Time Seen by Provider: 07/03/21 19:11 Source: patient Mode of arrival: ambulatory Limitations: no limitations - History of Present Illness Initial Comments: This 21 -year-old female presents to the emergency department requesting to get tested for COVID-19. Patient states her boyfriend discussed the positive so she would like to know if she is positive as well. Patient denies having any symptoms. Patient does state 2 days ago she did feel more fatigued and slept for a while and then felt better. Patient denies any chest pain, shortness breath, abdominal pain, headache, body aches, nausea, vomiting, change in vision, change in bowel or bladder, change in appetite. - Related Data Home Medications Medication Instructions Recorded Confirmed Ibuprofen [Motrin] 800 mg PO Q8H 04/30/21 04/30/21 Levothyroxine Sodium [Synthroid] 25 mcg PO DAILY 04/30/21 04/30/21 Previous Rx's Medication Instructions Recorded Medroxyprogesterone Acetate 10 mg PO DAILY #4 tab 04/30/21 [Provera] Allergies Allergy/AdvReac Type Severity Reaction Status Date / Time acetaminophen [From Tylenol] AdvReac "PASSES Verified 07/03/21 19:08 OUT" Review of Systems ROS Statement: Those systems with pertinent positive or pertinent negative responses have been documented in the HPI. ROS Other: All systems not noted in ROS Statement are negative. Past Medical History Past Medical History: Thyroid Disorder History of Any Multi-Drug Resistant Organisms: None Reported Past Surgical History: No Surgical Hx Reported Past Psychological History: Anxiety, PTSD Smoking Status: Vaper Past Alcohol Use History: None Reported Past Drug Use History: None Reported General Exam Limitations: no limitations General appearance: alert, in no apparent distress Head exam: Present: atraumatic Eye exam: Present: normal appearance, EOMI ENT exam: Present: normal exam, mucous membranes moist Neck exam: Present: full ROM. Absent: tenderness Respiratory exam: Present: normal lung sounds bilaterally. Absent: respiratory distress, wheezes, rales, rhonchi, stridor Cardiovascular Exam: Present: regular rate, normal rhythm, normal heart sounds. Absent: systolic murmur, diastolic murmur, rubs, gallop, clicks GI/Abdominal exam: Present: soft, normal bowel sounds. Absent: distended, tenderness, guarding, rebound, rigid Extremities exam: Present: full ROM Back exam: Present: full ROM. Absent: CVA tenderness (R), CVA tenderness (L) Neurological exam: Present: alert, oriented X3, CN II-XII intact Psychiatric exam: Present: normal affect, normal mood Skin exam: Present: warm, dry, intact, normal color. Absent: rash Course Vital Signs 07/03/21 19:06 Temperature 98.4 F Pulse Rate 80 Respiratory 16 Rate Blood Pressure 137/85 O2 Sat by Pulse 98 Oximetry Medical Decision Making - Medical Decision Making This 21-year-old female presents emergency department to get tested for COVID-19 due to her boyfriend being positive. Patient's COVID-19 test was negative. Patient sent home in stable condition. Strict return precautions given. Patient verbally agreed to the plan. Discussed case with . - Lab Data Lab Results 07/03/21 Range/Units 19:11 Coronavirus (PCR) Not Detected (Not Detectd) Disposition Clinical Impression: Lab test negative for COVID-19 virus Disposition: HOME SELF-CARE Condition: Stable Instructions (If sedation given, give patient instructions): Coronavirus Disease 2019 (COVID-19) Additional Instructions: Please return to the emergency department with any concerning, new, worsening symptoms. Is patient prescribed a controlled substance at d/c from ED?: No Referrals: Arabella Harrison MD [Primary Care Provider] - 1-2 days Time of Disposition: 20:01
[2021-07-03 20:19] VITALS: BP 128/79; PULSE 78
== END 2021-07-03 20:24 | disposition home or self-care (01) ==
LOC: EC 18:55
DX: Z20.822 Contact with and (suspected) exposure to COVID-19 (principal); E07.9 Disorder of thyroid, unspecified; F41.9 Anxiety disorder, unspecified; F43.12 Post-traumatic stress disorder, chronic; F17.290 Nicotine dependence, other tobacco product, uncomplicated
CPT/HCPCS: 87635; 99282

== ENCOUNTER 2021-10-22 18:06 | Emergency (ER) | payer OTHER ==
[2021-10-22 19:48] VITALS: RESP 18; TEMP 99.6
[2021-10-22] MEDS ORDERED: IBUPROFEN 600 MG TAB PO STA (21:48)
--- NOTE | 2021-10-22 22:04 | XR ---
EXAMINATION TYPE: XR chest 2V DATE OF EXAM: 10/22/2021 COMPARISON: 11/04/2019 HISTORY: Cough TECHNIQUE: 2 views FINDINGS: Heart and mediastinum are normal. Lungs are clear. The diaphragm is normal. Bony thorax magalys ears normal. IMPRESSION: Normal chest. No change.
--- NOTE | 2021-10-22 22:19 | ED ---
General Adult HPI - General Chief complaint: Upper Respiratory Infection Stated complaint: covid+ Time Seen by Provider: 10/22/21 21:11 Source: patient, RN notes reviewed Mode of arrival: ambulatory Limitations: no limitations - History of Present Illness Initial comments: 21-year-old female presents to the emergency department for evaluation of cough and fever, onset this morning. Reports that she developed a headache throughout the day. Patient states her mother tested positive for Covid on Mother's Day and they were in close contact at that time. Patient states she did not take any medication prior to arrival to treat her symptoms. Reports adequate oral intake today. Denies dizziness, neck pain, chest pain, difficulty breathing, abdominal pain, nausea, vomiting, diarrhea, dysuria, or hematuria. - Related Data Home Medications Medication Instructions Recorded Confirmed Levothyroxine Sodium [Synthroid] 25 mcg PO DAILY 04/30/21 10/22/21 Allergies Allergy/AdvReac Type Severity Reaction Status Date / Time acetaminophen [From Tylenol] AdvReac "PASSES Verified 10/22/21 22:03 OUT" Review of Systems ROS Statement: Those systems with pertinent positive or pertinent negative responses have been documented in the HPI. ROS Other: All systems not noted in ROS Statement are negative. Past Medical History Past Medical History: Asthma, Diabetes Mellitus, Thyroid Disorder History of Any Multi-Drug Resistant Organisms: None Reported Past Surgical History: No Surgical Hx Reported Past Psychological History: Anxiety, PTSD Smoking Status: Vaper Past Alcohol Use History: None Reported Past Drug Use History: None Reported General Exam Limitations: no limitations (Well-developed, well-nourished female in no acute distress. Initial temperature 99.6, pulse 99, respirations 18, blood pressure 108/70, pulse ox 99% on room air.) General appearance: alert, in no apparent distress ENT exam: Present: normal exam, normal oropharynx, mucous membranes moist, TM's normal bilaterally Neck exam: Present: normal inspection, full ROM. Absent: tenderness, meningismus, lymphadenopathy Respiratory exam: Present: normal lung sounds bilaterally. Absent: respiratory distress, wheezes, rales, rhonchi, stridor, chest wall tenderness Cardiovascular Exam: Present: regular rate, normal rhythm, normal heart sounds. Absent: systolic murmur, diastolic murmur, rubs, gallop, clicks GI/Abdominal exam: Present: soft, normal bowel sounds. Absent: distended, tenderness, guarding, rebound, rigid Neurological exam: Present: alert, oriented X3, CN II-XII intact Psychiatric exam: Present: normal affect, normal mood Skin exam: Present: warm, dry, intact, normal color. Absent: rash Course Vital Signs 10/22/21 10/22/21 19:46 23:03 Temperature 99.6 F Pulse Rate 99 80 Respiratory 18 18 Rate Blood Pressure 108/70 110/55 O2 Sat by Pulse 99 Oximetry Medical Decision Making - Medical Decision Making This is a 21-year-old female with a past medical history of asthma and endometriosis who presents to the emergency department for evaluation of fever, fatigue, and dry cough. Upon exam, patient is well-appearing and in no acute distress. Vital signs are stable. She does have a known close contact exposure with a Covid-positive individual. Patient's physical exam findings are unremarkable. Her Covid test is positive. She is provided with a note for work and return instructions. Patient was given Motrin for body aches and fever. Chest x-ray is negative. Patient will be discharged home to follow up with her PCP as needed. Return parameters discussed in detail. Patient verbalizes understanding and agrees with this plan. Attending: Prudnece. - Lab Data Lab Results 10/22/21 Range/Units 19:51 Coronavirus (PCR) Detected A (Not Detectd) - Radiology Data Radiology results: report reviewed, image reviewed Two-view chest x-ray was obtained. Report was reviewed in its entirety. Impression per Dr. Yanes as normal chest. No change. Disposition Clinical Impression: COVID-19, Fever Disposition: HOME SELF-CARE Condition: Stable Instructions (If sedation given, give patient instructions): Fever in Adults (ED), COVID-19 (Coronavirus Disease 2019) (ED) Additional Instructions: Treat fever with Motrin. Hydration is important. Consider electrolyte solutions such as coconut water, Gatorade, or Pedialyte. Follow-up with your PCP via telephone or video visit in 24-48 hours for a recheck. Return to the emergency department with any new, worsening, or concerning symptoms. Is patient prescribed a controlled substance at d/c from ED?: No Referrals: Arabella Harrison MD [Primary Care Provider] - 1-2 days Time of Disposition: 22:19
[2021-10-22 23:06] VITALS: BP 110/55; PULSE 80
== END 2021-10-22 23:58 | disposition home or self-care (01) ==
LOC: EC 18:06
DX: U07.1 COVID-19 (principal); F17.290 Nicotine dependence, other tobacco product, uncomplicated; J45.909 Unspecified asthma, uncomplicated; E11.9 Type 2 diabetes mellitus without complications; E07.9 Disorder of thyroid, unspecified; Z79.890 Hormone replacement therapy
CPT/HCPCS: 71046; 87635; 99283

== ENCOUNTER 2024-01-10 08:17 | Inpatient (IN) | payer BC, OTHER ==
--- NOTE | 2024-01-10 08:46 | ED ---
General Adult HPI - General Chief complaint: Psychiatric Symptoms Stated complaint: MENTAL HEALTH Time Seen by Provider: 01/10/24 08:27 Source: patient, RN notes reviewed, old records reviewed Mode of arrival: ambulatory Limitations: no limitations - History of Present Illness Initial comments: Patient is a 23-year-old female presents emergency department for suicidal ideations. Since last week has been having thoughts of wanting to drive recklessly into traffic and states that she almost did it twice and then attempted overdose on meth over the weekend. States she has a plan of "overdosing on anything that I can get my hands on." Denies homicidal thoughts or ideations. Denies hallucinations. Tell triage she was planning on going to [place] because they have euthanasia clinics there. Does not follow-up with therapist. States she is concerned regarding her thoughts is that is why she presents for further evaluation at this time. States she still feels suicidal. Has no obvious physical complaints at this time. Presents for further evaluation. - Related Data Home Medications Medication Instructions Recorded Confirmed Levothyroxine Sodium [Synthroid] 25 mcg PO DAILY 04/30/21 10/22/21 Allergies Allergy/AdvReac Type Severity Reaction Status Date / Time acetaminophen [From Tylenol] AdvReac "PASSES Verified 01/10/24 08:27 OUT" Review of Systems ROS Statement: Those systems with pertinent positive or pertinent negative responses have been documented in the HPI. Review of Systems: CONST: Denies fever EYES: Denies blurry vision ENT: Denies nasal congestion C/V: Denies Chest pain RESP: Denies shortness of breath GI: Denies abdominal pain : Denies dysuria SKIN: Denies rash. MSK: Denies joint pain. NEURO: Denies headache ROS Other: All systems not noted in ROS Statement are negative. Past Medical History Past Medical History: Asthma, Thyroid Disorder History of Any Multi-Drug Resistant Organisms: None Reported Past Surgical History: No Surgical Hx Reported Past Psychological History: Anxiety, PTSD Smoking Status: Vaper Past Alcohol Use History: None Reported, Heavy Past Drug Use History: Cocaine General Exam - General Exam Comments Initial Comments: General: Appears anxious HEAD: Normal with no signs of head trauma. EYES: EOMI ENT: Hearing grossly intact, normal oropharynx. RESPIRATORY: Clear breath sounds bilaterally. No wheezes, rales, or rhonchi. C/V: Regular rate and rhythm. S1 and S2 auscultated, peripheral pulses 2+ and intact throughout ABD: Abd is soft, nontender, nondistended EXT: no obvious deformity SKIN: No rashes or lesions observed on exposed skin. NEURO: Alert and oriented x 4. No focal deficits. Limitations: no limitations Course Vital Signs 01/10/24 01/10/24 08:19 08:26 Temperature 97.7 F Pulse Rate 100 68 Respiratory 18 16 Rate Blood Pressure 122/70 145/68 O2 Sat by Pulse 98 98 Oximetry Medical Decision Making - Medical Decision Making Was pt. sent in by a medical professional or institution (, PA, WOOL HANDLER, urgent care, hospital, or penitentiary...) When possible be specific @ -No Did you speak to anyone other than the patient for history (EMS, parent, family, police, friend...)? What history was obtained from this source @ -No Did you review nursing and triage notes (agree or disagree)? Why? @ -I reviewed and agree with nursing and triage notes Were old charts reviewed (outside hosp., previous admission, EMS record, old EKG, old radiological studies, urgent care reports/EKG's, penitentiary records)? Report findings @ -No old charts were reviewed Differential Diagnosis (chest pain, altered mental status, abdominal pain women, abdominal pain men, vaginal bleeding, weakness, fever, dyspnea, syncope, headache, dizziness, GI bleed, back pain, seizure, CVA, palpatations, mental health, musculoskeletal)? @ -Differential Mental Health Depression, anxiety, bipolar, psychosis, schizophrenia, borderline personality, situational depression, adjustment disorder, behavioral disorder, brain tumor, malingering, substance abuse, encephalopathy, medication reaction, dementia, hypothyroidism, degenerative neurologic disorder, lupus.... This is not meant to be all-inclusive list EKG interpreted by me (3pts min.). @ -None done X-rays interpreted by me (1pt min.). @ -None done CT interpreted by me (1pt min.). @ -None done U/S interpreted by me (1pt. min.). @ -None done What testing was considered but not performed or refused? (CT, X-rays, U/S, labs)? Why? @ -None What meds were considered but not given or refused? Why? @ -None Did you discuss the management of the patient with other professionals (professionals i.e. , PA, WOOL HANDLER, lab, RT, psych nurse, administrator social welfare, vice president quality assurance, teacher, chief digital media officer, bilingual patient support caseworker)? Give summary @ -EPS Heber notified of the consult Was smoking cessation discussed for >3mins.? @ -No Was critical care preformed (if so, how long)? @ -No Were there social determinants of health that impacted care today? How? (Homelessness, low income, unemployed, alcoholism, drug addiction, transportation, low edu. Level, literacy, decrease access to med. care, fdc, rehab)? @ -No Was there de-escalation of care discussed even if they declined (Discuss DNR or withdrawal of care, Hospice)? DNR status @ -No What co-morbidities impacted this encounter? (DM, HTN, Smoking, COPD, CAD, Cancer, CVA, ARF, Chemo, Hep., AIDS, mental health diagnosis, sleep apnea, morbid obesity)? @ -None Was patient admitted / discharged? Hospital course, mention meds given and route, prescriptions, significant lab abnormalities, going to OR and other pertinent info. @ -Based on the patient's presentation and physical exam, presents with suicidal ideations. Vital signs within acceptable limits. No obvious physical complaints. Patient placed in klein scrubs, sitter and suicide precautions ordered. Patient's BAT is 0. UDS is pending. At this time patient is medically cleared for evaluation by psychiatry. Disposition pending psychiatric evaluation. EPS Heber notified of the consult. EPS time evaluated the patient and determined that she does meet criteria for inpatient psychiatric services. Patient admitted to inpatient psychiatry in stable condition. Undiagnosed new problem with uncertain prognosis? @ -No Drug Therapy requiring intensive monitoring for toxicity (Heparin, Nitro, Insulin, Cardizem)? @ -No Were any procedures done? @ -No Diagnosis/symptom? @ -Encounter for psychiatric evaluation, suicidal ideation, substance abuse Acute, or Chronic, or Acute on Chronic? @ -Acute Uncomplicated (without systemic symptoms) or Complicated (systemic symptoms)? @ -Complicated Side effects of treatment? @ -None Exacerbation, Progression, or Severe Exacerbation] @ -No Poses a threat to life or bodily function? @ -Yes - Lab Data Lab Results 01/10/24 Range/Units 08:51 Urine Opiates Screen Not Detected (NotDetected) Ur Oxycodone Screen Not Detected (NotDetected) Urine Methadone Screen Not Detected (NotDetected) Ur Barbiturates Screen Not Detected (NotDetected) U Tricyclic Antidepress Not Detected (NotDetected) Ur Phencyclidine Scrn Not Detected (NotDetected) Ur Amphetamines Screen Detected H (NotDetected) U Methamphetamines Scrn Detected H (NotDetected) U Benzodiazepines Scrn Not Detected (NotDetected) Urine Cocaine Screen Not Detected (NotDetected) U Marijuana (THC) Screen Not Detected (NotDetected) Disposition Clinical Impression: Encounter for psychiatric assessment, Suicidal ideation, Substance abuse Disposition: TRANSFER TO PSYCH HOSP/UNIT Condition: Stable Referrals: Nonstaff,Physician [REFERRING] - 1-2 days Time of Disposition: 10:35
[2024-01-10] MEDS: LORazepam 1 MG TAB PO STA (09:09)
[2024-01-10 09:26] LABS: Amphetamine Screen,Urine Detected (NotDetected); Barbiturate Screen,Urine Not Detected (NotDetected); Benzodiazepines Screen,Urine Not Detected (NotDetected); Cocaine Screen,Urine Not Detected (NotDetected); Methadone Screen, Urine Not Detected (NotDetected); Opiate Screen,Urine Not Detected (NotDetected); Oxycodone Screen, Urine Not Detected (NotDetected); Phencyclidine Screen,Urine Not Detected (NotDetected); Tricyclic Antidepressant,Urine Not Detected (NotDetected); Urn Cannabinoid Scrn Not Detected (NotDetected)
[2024-01-10] MEDS ORDERED: MAGNESIUM HYDROXIDE 2,400 MG/30 ML CUP PO PRN (14:41)
[2024-01-10] MEDS ORDERED: traZODone HCL 50 MG TAB PO PRN (14:41)
[2024-01-10] MEDS ORDERED: MAG HYDROX/AL HYDROX/SIMETH 355 ML BOTTLE PO PRN (14:41)
[2024-01-10] MEDS ORDERED: LORazepam 2 MG/ML INJ IM PRN (14:41)
[2024-01-10] MEDS ORDERED: LORazepam 1 MG TAB PO PRN (14:41)
[2024-01-10 15:29] LABS: Amorphous Sediment,Urine Many /hpf; Appearance,Urine Turbid (Clear); Bacteria,Urine Few /hpf; Bilirubin,Urine Negative (Negative); Blood,Urine Trace (Negative); Color,Urine Yellow; Glucose,Urine (UA) Negative (Negative); Ketones,Urine Negative (Negative); Leukocyte Esterase,Urine Negative (Negative); Mucus,Urine Many /hpf; Nitrite,Urine Negative (Negative); Protein,Urine Trace (Negative); Specific Gravity,Urine 1.037 (1.001-1.035); Squamous Epithelial Cell,Urine 4 /hpf (0-4); Urobilinogen,Urine <2.0 mg/dL (<2.0); WBC,Urine 9 /hpf (0-5)
[2024-01-10] MEDS: NON FORMULARY DRUG (Cabergoline [Cabergoline] 0.5 MG Tablet) PO SCH (16:06)
[2024-01-10] MEDS: IBUPROFEN 600 MG TAB PO PRN (16:07)
--- NOTE | 2024-01-11 02:54 | P.CONS ---
History of Present Illness - Reason for Consult Consult date: 01/11/24 - History of Present Illness The patient is a 23-year-old female with no known PMH who had presented to the emergency room with complaints of depression and suicidal ideation. The patient was admitted to the mental health unit where she was seen and evaluated while accompanied by mental health community coordinator for high school. The patient reports that she has been suffering with thoughts of suicide and depression due to her worsening social situation. She reports that her recently left her several months ago and that she does not have much other support. She does report some foul- smelling vaginal discharge and a history of bacterial vaginosis for which she requested DUST COLLECTOR evaluation. The patient otherwise denied any additional complaints. She reports vaping use and does report occasional methamphetamine use. He denies alcohol use. Denied experiencing chest discomfort, shortness of breath, fever, chills, cough, nausea, vomiting, abdominal pain, diarrhea. Review of systems: Pertinent positives and negatives as discussed in HPI, a complete review of systems was performed and all other systems are negative. Physical examination: General: non toxic, no distress, appears at stated age, obese Derm: no unusual rashes/lesions, no unusual ecchymoses, warm, dry Head: atraumatic, normocephalic, symmetric Eyes: EOMI, no lid lag, anicteric sclera ENT: Nose and ears atraumatic, no thrush, no pharyngeal erythema Neck: trachea midline, supple Mouth: no lip lesion, mucus membranes moist Cardiovascular: S1S2 reg, no murmur, no edema Lungs: CTA bilateral, no rhonchi, no rales , no accessory muscle use Abdominal: soft, nontender to palpation, no guarding Ext: no gross muscle atrophy, no contractures, Neuro: No gross focal neuro deficits noted Psych: Alert, oriented, appropriate affect Assessment: Polysubstance abuse Bacterial vaginosis with ongoing foul-smelling vaginal discharge without dysuria or other urinary complaints Depression and suicidal ideation Imaging: None performed Data Review: Urine toxicology positive for methamphetamines. UA showing 9 WBCs with trace blood and trace protein. Plan: Advised on the importance of cessation DUST COLLECTOR consulted Defer management of depression and suicidal ideation to the primary psychiatry service Thank you for allowing us to participate in the care of this patient. We will follow peripherally. Do not hesitate to contact us with questions. Someone can be reached from the [facility] hospitalist group at all hours of the day at [phone]. Past Medical History Past Medical History: Asthma, Thyroid Disorder History of Any Multi-Drug Resistant Organisms: None Reported Past Surgical History: No Surgical Hx Reported Past Anesthesia/Blood Transfusion Reactions: No Reported Reaction Past Psychological History: Anxiety, PTSD Smoking Status: Current every day smoker, Vaper Past Alcohol Use History: Occasional Additional Past Alcohol Use History / Comment(s): Occasional Alcohol use per patient. Drinking less than monthly. Past Drug Use History: Cocaine, Methamphetamine Additional Drug Use History / Comment(s): Patient verbalizes methamphetamine use as a means to OD to attempt suicide per patient. Medications and Allergies Home Medications Medication Instructions Recorded Confirmed Type Cabergoline 0.5 mg PO MOWEFR 01/10/24 01/10/24 History Levothyroxine Sodium [Synthroid] 75 mcg PO DAILY 01/10/24 01/10/24 History Allergies Allergy/AdvReac Type Severity Reaction Status Date / Time acetaminophen [From Tylenol] AdvReac "PASSES Verified 01/10/24 16:00 OUT" Physical Exam Vitals: Vital Signs Temp Pulse Pulse Resp BP BP Pulse Ox 01/10/24 15:34 97.8 F 78 16 118/58 99 01/10/24 14:55 68 16 138/86 98 01/10/24 12:21 81 18 92/50 98 01/10/24 08:26 68 16 145/68 98 01/10/24 08:19 97.7 F 100 18 122/70 98 Intake and Output 01/10/24 01/10/24 01/11/24 14:59 22:59 06:59 Other: Weight 113.398 kg 108.771 kg Results Labs: Abnormal Lab Results - Last 24 Hours (Table) 01/10/24 01/10/24 Range/Units 08:51 08:51 Urine Appearance Turbid H (Clear) Ur Specific [place] 1.037 H (1.001-1.035) Urine Protein Trace H (Negative) Urine Blood Trace H (Negative) Urine WBC 9 H (0-5) /hpf Amorphous Sediment Many H (None) /hpf Urine Bacteria Few H (None) /hpf Urine Mucus Many H (None) /hpf Ur Amphetamines Screen Detected H (NotDetected) U Methamphetamines Scrn Detected H (NotDetected)
[2024-01-11] MEDS: LEVOTHYROXINE 75 MCG TAB PO SCH (08:52)
[2024-01-11] MEDS: NICOTINE 14MG/24HR PATCH TRANSDERM SCH (08:52)
[2024-01-11 11:08] LABS: Basophils # (A) 0.1 k/uL (0-0.2); Basophils % (A) 1 %; Eosinophils # (A) 0.1 k/uL (0-0.7); Eosinophils % (A) 1 %; HCT 36.5 % (34.0-46.0); HGB 11.6 gm/dL (11.4-16.0); Hypochromasia Moderate; Lymphocytes # (A) 2.9 k/uL (1.0-4.8); Lymphocytes % (A) 29 %; MCH 24.3 pg (25.0-35.0); MCHC 31.8 g/dL (31.0-37.0); MCV 76.7 fL (80.0-100.0); Mean Platelet Volume 6.9; Microcytosis Slight; Monocytes # (A) 0.4 k/uL (0-1.0); Monocytes % (A) 4 %; Neutrophils # (A) 6.3 k/uL (1.3-7.7); Neutrophils % (A) 64 %; Platelet Count 343 k/uL (150-450); RBC 4.76 m/uL (3.80-5.40); RDW 15.5 % (11.5-15.5); WBC 9.9 k/uL (3.8-10.6)
[2024-01-11 11:47] LABS: ALT 23 U/L (4-34); AST 22 U/L (14-36); African American GFR (CKD) >90 (>60 ml/min/1.73 sqM); Albumin 3.6 g/dL (3.5-5.0); Alkaline Phosphatase 86 U/L (38-126); Anion Gap 8 mmol/L; Blood Urea Nitrogen 8 mg/dL (7-17); Calcium 9.1 mg/dL (8.4-10.2); Carbon Dioxide 27 mmol/L (22-30); Chloride 100 mmol/L (98-107); Glucose 87 mg/dL (74-99); Non-African American GFR(CKD) >90 (>60 ml/min/1.73 sqM); Potassium 3.8 mmol/L (3.5-5.1); Sodium 135 mmol/L (137-145); Total Bilirubin 0.6 mg/dL (0.2-1.3); Total Protein 6.1 g/dL (6.3-8.2)
--- NOTE | 2024-01-11 12:17 | P.HP ---
Psychiatric H&P - . H&P Date: 01/11/24 History & Physical: Allergies Allergy/AdvReac Type Severity Reaction Status Date / Time acetaminophen [From Tylenol] AdvReac "PASSES Verified 01/10/24 16:00 OUT" Vital Signs Temp 97.3 F L 01/11/24 06:43 Pulse 73 01/11/24 06:43 Resp 16 01/11/24 06:43 BP 125/82 01/11/24 06:43 Pulse Ox 99 01/11/24 06:43 FiO2 Intake & Output 01/10/24 01/11/24 01/11/24 18:59 06:59 18:59 Weight 108.771 kg Laboratory Last Values Urine Color Yellow 01/10/24 08:51 Urine Appearance Turbid (Clear) H 01/10/24 08:51 Urine pH 6.0 (5.0-8.0) 01/10/24 08:51 Ur Specific Calvin 1.037 (1.001-1.035) H 01/10/24 08:51 Urine Protein Trace (Negative) H 01/10/24 08:51 Urine Glucose (UA) Negative (Negative) 01/10/24 08:51 Urine Ketones Negative (Negative) 01/10/24 08:51 Urine Blood Trace (Negative) H 01/10/24 08:51 Urine Nitrite Negative (Negative) 01/10/24 08:51 Urine Bilirubin Negative (Negative) 01/10/24 08:51 Urine Urobilinogen <2.0 mg/dL (<2.0) 01/10/24 08:51 Ur Leukocyte Esterase Negative (Negative) 01/10/24 08:51 Urine WBC 9 /hpf (0-5) H 01/10/24 08:51 Ur Squamous Epith Cells 4 /hpf (0-4) 01/10/24 08:51 Amorphous Sediment Many /hpf (None) H 01/10/24 08:51 Urine Bacteria Few /hpf (None) H 01/10/24 08:51 Urine Mucus Many /hpf (None) H 01/10/24 08:51 Urine HCG, Qual Not Detected (Not Detectd) 01/10/24 08:51 Urine Opiates Screen Not Detected (NotDetected) 01/10/24 08:51 Ur Oxycodone Screen Not Detected (NotDetected) 01/10/24 08:51 Urine Methadone Screen Not Detected (NotDetected) 01/10/24 08:51 Ur Barbiturates Screen Not Detected (NotDetected) 01/10/24 08:51 U Tricyclic Antidepress Not Detected (NotDetected) 01/10/24 08:51 Ur Phencyclidine Scrn Not Detected (NotDetected) 01/10/24 08:51 Ur Amphetamines Screen Detected (NotDetected) H 01/10/24 08:51 U Methamphetamines Scrn Detected (NotDetected) H 01/10/24 08:51 U Benzodiazepines Scrn Not Detected (NotDetected) 01/10/24 08:51 Urine Cocaine Screen Not Detected (NotDetected) 01/10/24 08:51 U Marijuana (THC) Screen Not Detected (NotDetected) 01/10/24 08:51 SARS-CoV-2 (PCR) Not Detected (Not Detectd) 01/10/24 10:33 01/11/24 08:49 IDENTIFYING DATA: Patient is a 23-year-old female. , going through a divorce. No children. Currently living in a house with her mother. 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 HPI: Patient presented to the hospital on 01/08. As per EPS note, "Clinician met with Rita in ER 10 to puja. Cl was awake in bed, A/O x4 brought self in via family due to increased SI, w plan to OD on meth, increased depression/anxiety, not under current MH tx. Cl reports that they are currently going through a divorce, being wreckless with themselves, and struggeling with SI the last 90 days. Cl states " This last I went to [place] to see a friend, I had never done meth before, and I used a lot in hopes I would OD on it." Cl presents depressed, tearful, tangential, overwhelmed, anxious, suicidal, w loss of interest, motivation, energy. Cl also reports significant patterns of broken sleep. " I have been having days where I am up like 48 hrs, then only sleeping maybe 8 after that, or I am sleeping more than normal." Upon todays interview, she stated that for the past 9 months, she has had a close friend that lived in [place], and she would go visit them weekly, and she started making poor choices with this friend. In March, she was having marital issues, and her had left her. She claims to have not slept for a week straight, and hallucinating, seeing shadows. She states it has been a series of events over the past year. She stated her breaking point was last week, when her killed her cats. She was in [place] when he did this, and she states she was high on meth when she found this out. When she came back home, she stated she had a friend drop her off at the hospital. She makes claims of her using her for money, and always asking for money. Patient endorses good sleep here, and a good appetite. Patient denies any current suicidal or homicidal ideations intent or plan. At this time patient denies any auditory or visual hallucinations. Patient presents with flight of ideas, and racing thoughts. Patient admits to using methamphetamines and a vape. PAST PSYCHIATRIC HISTORY: Patient states that she used to follow up with [facility]. Patient has not been on medications for quite a long time. Patient denies any previous psychiatric hospitalizations. Patient denies any current psychiatric outpatient follow-up. Patient admits to suicide attempt in the past at age 12 by means of overdose. PMH:As per ER note ALLERGIES: as per EMR CHEMICAL DEPENDENCY HISTORY: as per HPI FAMILY PSYCHIATRIC/SUBSTANCE USE HISTORY: dad and brother, autistic, bipolar, schizophrenic SOCIAL HISTORY: Patient was born and raised in [place], [place]. 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 , no children. Going through a divorce. 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 Denies legal problems. MENTAL STATUS EXAM: General Appearance: Patient appears to be overweight, dressed casually. stated age is alert, [directable, and attempts to cooperate]. Patient appears to have fair hygiene and grooming. Behavior: Patient is seated without any agitated behavior. Speech: Patient's speech is fluent and nonpressured. tangential Mood/Affect: Patient reports their mood is [depressed], affect is congruent and composed. Suicidality/Homicidality: Patient denies having any homicidal ideation intent or plan. [Denies any suicidal ideations intent or plan] Perceptions: Currently Patient denies any visual hallucinations [and denies any auditory hallucinations] Though content/process: There is no evidence of any delusional thought content and thought process flight of ideas Memory and concentration: AOX3, grossly intact for the purposes of this session. Can spell "WORLD" backwards Judgment and insight: [poor/impulsive] STRENGTHS/WEAKNESSES: strength is that patient is resilient. Weakness is that patient [has poor judgment and is impulsive INTELLECT: average IMPRESSIONS: depressive disorder, unspecified methamphetamine abuse nicotine dependance marital problems PLAN: -Patient is admitted under [voluntary] status to MHU for stabilization of psychiatric symptoms and safety. Patient has signed [adult voluntary form and] [medication consent] and is placed in patient's chart. -Medications : Will start patient on trazodone 25mg qhs for sleep, Lexapro 5mg daily for mood/anxiety -Ativan [and Haldol] PRN for agitation/aggression -Patient was counselled on substance abuse and desired to cut back on use -Patient was informed of the risks, benefits and side effects of the medication [and patient verbally consented to taking the medications. -Internal Medicine consult to perform medical evaluation and physical. -NRT - nicotine patch -SW on board for discharge planning. Encourage patient to participate in groups to work on coping skills. 01/11/24 11:52 01/11/24 12:16
[2024-01-11 16:13] LABS: LDL Cholesterol,Calculated 82.1 mg/dL (0.0-131.0)
[2024-01-11] MEDS: traZODone HCL 50 MG TAB PO SCH (22:09)
[2024-01-12] MEDS: ESCITALOPRAM 5 MG TAB PO SCH (08:55)
--- NOTE | 2024-01-12 13:10 | P.PN ---
Progress Note - Text Progress Note Date: 01/12/24 Interval History: Patient was agreeable to speak to commercial insurance underwriter via telehealth in cross-coverage for Aria Marcum. Rita filled out a 3-day AMA discharge notice today; she states she didn't plan on being in the hospital this long, states she just came in because she was having a breakdown due to stressful life events. She has talked to her family and has a safety plan about how to cope with life stress. At this time she is denying any auditory or visual hallucinations, denying any suicidal/homicidal ideation, intent or plan. Patient has been taking medications as prescribed. She would like to discuss discharge with Dr. Marcum tomorrow. MENTAL STATUS EXAM: General Appearance: Patient appears to be obese female, adequate improving hygiene and grooming. Behavior: Patient is seated without any agitated behavior. Calm, cooperates. Speech: Patient's speech is fluent and non-pressured. Mood/Affect: Patient reports their mood is "good", affect is congruent, mildly improving Suicidality/Homicidality: Patient denies having any homicidal ideation intent or plan. Denies any suicidal ideation, intent or plan Perceptions: Patient denies any visual hallucinations and denies any auditory hallucinations. Though content/process: linear, goal-directed, mildly improving Memory and concentration: AOX2-3, grossly intact for the purposes of this session. Judgment and insight: Fair, improving IMPRESSIONS: Depressive disorder, unspecified Methamphetamine abuse Nicotine dependance Marital problems PLAN: -Patient is admitted under voluntary status to MHU for stabilization of psychiatric symptoms and safety. Patient has signed adult voluntary form and medication consent and is placed in patient's chart. -Medications: Will continue patient on Trazodone 25mg qhs for sleep and Lexapro 5mg daily for mood/anxiety. -Ativan and Haldol PRN for agitation/aggression -Patient was counselled on substance abuse and desired to cut back on use. -Patient was informed of the risks, benefits and side effects of the medication and patient verbally consented to taking the medications. -Internal Medicine consult to perform medical evaluation and physical. -NRT - nicotine patch -SW on board for discharge planning. Encourage patient to participate in groups to work on coping skills. -Consider discharge in the next 1-2 days if continues to stabilize.
[2024-01-13] MEDS: LEVOTHYROXINE 75 MCG TAB PO SCH (06:01)
--- NOTE | 2024-01-13 13:34 | P.PN ---
Progress Note - Text Progress Note Date: 01/13/24 Interval History: Patient was agreeable to speak to physician underwriter in the office. she states that she just finished lunch and is doing better today. She claims that she is trying to go to groups, participating is much as she can. States that she is doing better overall with her mood and anxiety. Claims that she feels the medications have been helping. States that she is sleeping much better at nighttime with the trazodone, not reporting any side effects. We spoke about increasing the Lexapro which she is okay with. She states that she would feel ready to go tomorrow back home. At this time she is denying any auditory or visual hallucinations, denying any suicidal/homicidal ideation, intent or plan. Patient has been taking medications as prescribed. MENTAL STATUS EXAM: General Appearance: Patient appears to be obese female, adequate improving hygiene and grooming. Behavior: Patient is seated without any agitated behavior. Calm, cooperates. Improving Speech: Patient's speech is fluent and non-pressured. Mood/Affect: Patient reports their mood is "better", affect is congruent, mildly improving Suicidality/Homicidality: Patient denies having any homicidal ideation intent or plan. Denies any suicidal ideation, intent or plan Perceptions: Patient denies any visual hallucinations and denies any auditory hallucinations. Though content/process: linear, goal-directed, mildly improving Memory and concentration: AOX2-3, grossly intact for the purposes of this session. Judgment and insight: improving IMPRESSIONS: Depressive disorder, unspecified Methamphetamine abuse Nicotine dependance Marital problems PLAN: -Patient is admitted under voluntary status to MHU for stabilization of psychiatric symptoms and safety. Patient has signed adult voluntary form and medication consent and is placed in patient's chart. -Medications: Trazodone 25mg qhs for sleep, increase Lexapro 10 mg daily for mood/anxiety. -Ativan and Haldol PRN for agitation/aggression -NRT - nicotine patch -SW on board for discharge planning. Encourage patient to participate in groups to work on coping skills. Patient signed AMA form on 01/11, likely discharge tomorrow back home if patient is improving
[2024-01-13] MEDS: ESCITALOPRAM 5 MG TAB PO STA (13:46)
[2024-01-14 04:18] VITALS: BP 81/60; PULSE 96; RESP 20; TEMP 97.8
[2024-01-14] MEDS: ESCITALOPRAM 10 MG TAB PO SCH (08:45)
--- NOTE | 2024-01-14 11:39 | P.DS ---
Providers Date of admission: 01/10/24 14:15 Expected date of discharge: 01/14/24 Attending physician: Nelson Marcum MD Consults: 01/10/24 14:41 Consult Physician Routine Consulting Provider: Karen Chawla Consult Reason/Comments: H&P and medical Do you want consulting provider notified?: Yes 01/11/24 02:18 Consult Physician Urgent Consulting Provider: Drea Tineo Consult Reason/Comments: Vaginal discharge Do you want consulting provider notified?: Yes Primary care physician: Chery Swain MD - Discharge Diagnosis(es) (1) Major depressive disorder, single episode, unspecified Current Visit: Yes Status: Acute Priority: High (2) Methamphetamine abuse Current Visit: Yes Status: Acute Priority: High (3) Nicotine dependence Current Visit: Yes Status: Acute Priority: Low (4) Marital problems Current Visit: Yes Status: Acute Priority: Medium Hospital Course: Admission HPI: Admission note was completed by writer producer" Patient presented to the hospital on 01/08. As per EPS note, "Clinician met with Rita in ER 10 to eval. Cl was awake in bed, A/O x4 brought self in via family due to increased SI, w plan to OD on meth, increased depression/anxiety, not under current MH tx. Cl reports that they are currently going through a divorce, being wreckless with themselves, and struggeling with SI the last 90 days. Cl states " This last I went to [place] to see a friend, I had never done meth before, and I used a lot in hopes I would OD on it." Cl presents depressed, tearful, tangential, overwhelmed, anxious, suicidal, w loss of interest, motivation, energy. Ranjeet also reports significant patterns of broken sleep. " I have been having days where I am up like 48 hrs, then only sleeping maybe 8 after that, or I am sleeping more than normal." Upon todays interview, she stated that for the past 9 months, she has had a close friend that lived in [place], and she would go visit them weekly, and she started making poor choices with this friend. In March, she was having marital issues, and her had left her. She claims to have not slept for a week straight, and hallucinating, seeing shadows. She states it has been a series of events over the past year. She stated her breaking point was last week, when her killed her cats. She was in [place] when he did this, and she states she was high on meth when she found this out. When she came back home, she stated she had a friend drop her off at the hospital. She makes claims of her using her for money, and always asking for money. Patient endorses good sleep here, and a good appetite. Patient denies any current suicidal or homicidal ideations intent or plan. At this time patient denies any auditory or visual hallucinations. Patient presents with flight of ideas, and racing thoughts. Patient admits to using methamphetamines and a vape." Hospital course: Upon admission to the unit patient was directable and agreeable to commence treatment and signed adult voluntary form. Patient ended up signing an AMA form shortly after being on the mental health unit. Patient got along well with other patients on the unit and followed unit protocol. Patient was compliant with the medications and denied any side effects throughout hospital course. Patient was started on Lexapro and increased to dose of 10 mg daily for mood/anxiety, patient was also started on trazodone 25 mg nightly for sleep/mood. Patient spoke of her stressors and engaged in therapy both group and individual. Patient was also seen by medical team for history and physical exam. Throughout the course of the hospitalization patient gradually improved with regards to mood, anxiety, suicidal thoughts, sleep and became more future oriented with improved insight and judgment. On the day of discharge patient denied any suicidal or homicidal ideations intent or plan denied any auditory or visual hallucinations. Patient endorsed wanting to live for her health future and family. The patient denied any access to guns or weapons. Patient denied any paranoia and did not endorse any delusions. Patient does have a significant history of substance abuse and was counseled on abstaining from all substances including alcohol and marijuana. Patient was offered however declined inpatient substance-abuse rehab. Patient was also counseled on the medications and need for regular compliance and was encouraged to follow-up with their outpatient appointment for mental health and also for primary care. Prior to discharge a family meeting will be arranged by socially responsible investment adviser to answer any questions and ensure safety upon discharge. Patient will be discharged back home today to her mother's house. Mental status exam: General Appearance: Patient appears to be mildly overweight, stated age is alert, pleasant, and cooperative. Patient is in no acute distress and has improved hygiene and grooming Behavior: Patient is calmly seated without any agitated behavior. Speech: Patient's speech is fluent and nonpressured. Mood/Affect: Patient reports their mood is "better", affect is congruent and euthymic. Suicidality/Homicidality: Patient denies having any suicidal or homicidal ideation intent or plan. Perceptions: Patient denies any auditory or visual hallucinations. Though content/process: There is no evidence of any delusional thought content and thought process is linear and goal-directed. More future oriented Memory and concentration: AOX3, grossly intact for the purposes of this session. Can spell "WORLD" backwards correctly. Judgment and insight: improved with guarded prognosis Impression: Major depressive disorder, single episode unspecified Methamphetamine abuse Nicotine dependance Marital problems Plan: -Continue with discharge today as patient has improved and stabilized psychiatrically and is not currently an imminent threat to herself and/or others. Patient will remain at chronically elevated risk for harm to self and/or others due to her impulsivity -Continue medications: Trazodone 50 mg nightly as needed for sleep, Lexapro 10 mg daily for mood/anxiety. -Patient was counseled on the need for medication compliance and appropriate follow-up at mental health and also primary care for medical issues. Patient verbalized understanding and agreed. -Social work to arrange for and conduct family meeting to ensure safety upon discharge and answer any questions/concerns. Social work also to arrange for patients follow up appointments for psychiatric care along with follow up with primary care provider. -Patient counseled on abstaining from recreational drugs and marijuana and alcohol. Was informed/educated on the adverse effects on their physical and mental health. Patient verbally agreed and understood. Patient was offered substance abuse treatment however declined at this time. -Patient was instructed to return to the hospital or seek immediate medical care if their psychiatric or medical symptoms do worsen or reoccur. Allergies Allergy/AdvReac Type Severity Reaction Status Date / Time acetaminophen from Tylenol AdvReac "PASSES Verified 01/10/24 16:00 OUT" Laboratory Results WBC 9.9 k/uL (3.8-10.6) 01/11/24 10:44 RBC 4.76 m/uL (3.80-5.40) 01/11/24 10:44 Hgb 11.6 gm/dL (11.4-16.0) 01/11/24 10:44 Hct 36.5 % (34.0-46.0) 01/11/24 10:44 MCV 76.7 fL (80.0-100.0) L 01/11/24 10:44 MCH 24.3 pg (25.0-35.0) L 01/11/24 10:44 MCHC 31.8 g/dL (31.0-37.0) 01/11/24 10:44 RDW 15.5 % (11.5-15.5) 01/11/24 10:44 Plt Count 343 k/uL (150-450) 01/11/24 10:44 MPV 6.9 01/11/24 10:44 Neutrophils % 64 % 01/11/24 10:44 Lymphocytes % 29 % 01/11/24 10:44 Monocytes % 4 % 01/11/24 10:44 Eosinophils % 1 % 01/11/24 10:44 Basophils % 1 % 01/11/24 10:44 Neutrophils # 6.3 k/uL (1.3-7.7) 01/11/24 10:44 Lymphocytes # 2.9 k/uL (1.0-4.8) 01/11/24 10:44 Monocytes # 0.4 k/uL (0-1.0) 01/11/24 10:44 Eosinophils # 0.1 k/uL (0-0.7) 01/11/24 10:44 Basophils # 0.1 k/uL (0-0.2) 01/11/24 10:44 Hypochromasia Moderate 01/11/24 10:44 Microcytosis Slight 01/11/24 10:44 Sodium 135 mmol/L (137-145) L 01/11/24 10:44 Potassium 3.8 mmol/L (3.5-5.1) 01/11/24 10:44 Chloride 100 mmol/L (98-107) 01/11/24 10:44 Carbon Dioxide 27 mmol/L (22-30) 01/11/24 10:44 Anion Gap 8 mmol/L 01/11/24 10:44 BUN 8 mg/dL (7-17) 01/11/24 10:44 Creatinine 0.70 mg/dL (0.52-1.04) 01/11/24 10:44 Est GFR (CKD-EPI)AfAm >90 (>60 ml/min/1.73 sqM) 01/11/24 10:44 Est GFR (CKD-EPI)NonAf >90 (>60 ml/min/1.73 sqM) 01/11/24 10:44 Glucose 87 mg/dL (74-99) 01/11/24 10:[address] Glu mg/dL 114 mg/dL 01/11/24 10:44 Hemoglobin A1c 5.6 % (<=6.0) 01/11/24 10:44 Calcium 9.1 mg/dL (8.4-10.2) 01/11/24 10:44 Total Bilirubin 0.6 mg/dL (0.2-1.3) 01/11/24 10:44 AST 22 U/L (14-36) 01/11/24 10:44 ALT 23 U/L (4-34) 01/11/24 10:44 Alkaline Phosphatase 86 U/L (38-126) 01/11/24 10:44 Total Protein 6.1 g/dL (6.3-8.2) L 01/11/24 10:44 Albumin 3.6 g/dL (3.5-5.0) 01/11/24 10:44 Triglycerides 188.00 mg/dL (0.00-149.00) H 01/11/24 10:44 Cholesterol 161.00 mg/dL (0.00-200.00) 01/11/24 10:44 LDL Cholesterol, Calc 82.1 mg/dL (0.0-131.0) 01/11/24 10:44 VLDL Cholesterol, Calc 37.60 mg/dL (5.00-40.00) 01/11/24 10:44 HDL Cholesterol 41.30 mg/dL (40.00-60.00) 01/11/24 10:44 Cholesterol/HDL Ratio 3.90 Ratio 01/11/24 10:44 TSH 2.490 mIU/L (0.465-4.680) 01/11/24 10:44 Urine Color Yellow 01/10/24 08:51 Urine Appearance Turbid (Clear) H 01/10/24 08:51 Urine pH 6.0 (5.0-8.0) 01/10/24 08:51 Ur Specific [place] 1.037 (1.001-1.035) H 01/10/24 08:51 Urine Protein Trace (Negative) H 01/10/24 08:51 Urine Glucose (UA) Negative (Negative) 01/10/24 08:51 Urine Ketones Negative (Negative) 01/10/24 08:51 Urine Blood Trace (Negative) H 01/10/24 08:51 Urine Nitrite Negative (Negative) 01/10/24 08:51 Urine Bilirubin Negative (Negative) 01/10/24 08:51 Urine Urobilinogen <2.0 mg/dL (<2.0) 01/10/24 08:51 Ur Leukocyte Esterase Negative (Negative) 01/10/24 08:51 Urine WBC 9 /hpf (0-5) H 01/10/24 08:51 Ur Squamous Epith Cells 4 /hpf (0-4) 01/10/24 08:51 Amorphous Sediment Many /hpf (None) H 01/10/24 08:51 Urine Bacteria Few /hpf (None) H 01/10/24 08:51 Urine Mucus Many /hpf (None) H 01/10/24 08:51 Urine HCG, Qual Not Detected (Not Detectd) 01/10/24 08:51 Urine Opiates Screen Not Detected (NotDetected) 01/10/24 08:51 Ur Oxycodone Screen Not Detected (NotDetected) 01/10/24 08:51 Urine Methadone Screen Not Detected (NotDetected) 01/10/24 08:51 Ur Barbiturates Screen Not Detected (NotDetected) 01/10/24 08:51 U Tricyclic Antidepress Not Detected (NotDetected) 01/10/24 08:51 Ur Phencyclidine Scrn Not Detected (NotDetected) 01/10/24 08:51 Ur Amphetamines Screen Detected (NotDetected) H 01/10/24 08:51 U Methamphetamines Scrn Detected (NotDetected) H 01/10/24 08:51 U Benzodiazepines Scrn Not Detected (NotDetected) 01/10/24 08:51 Urine Cocaine Screen Not Detected (NotDetected) 01/10/24 08:51 U Marijuana (THC) Screen Not Detected (NotDetected) 01/10/24 08:51 SARS-CoV-2 (PCR) Not Detected (Not Detectd) 01/10/24 10:33 Vital Signs Temp 97.8 F 01/14/24 04:17 Pulse 96 01/14/24 04:17 Resp 20 01/14/24 04:17 BP 81/60 01/14/24 04:17 Pulse Ox 99 01/14/24 04:17 FiO2 Patient Condition at Discharge: Stable Plan - Discharge Summary Discharge Rx Participant: No New Discharge Prescriptions: New Nicotine 14Mg/24Hr Patch [Habitrol] 1 patch TRANSDERM DAILY 14 Days #14 patch Escitalopram [Lexapro] 10 mg PO DAILY 30 Days #30 tab traZODone HCL [Desyrel] 50 mg PO HS PRN 30 Days #30 tab PRN Reason: Insomnia Continue Cabergoline 0.5 mg PO MOWEFR Levothyroxine Sodium [Synthroid] 75 mcg PO DAILY Discharge Medication List Cabergoline 0.5 mg PO MOWEFR 01/10/24 [History] Levothyroxine Sodium [Synthroid] 75 mcg PO DAILY 01/10/24 [History] Escitalopram [Lexapro] 10 mg PO DAILY 30 Days #30 tab 01/14/24 [Rx] Nicotine 14Mg/24Hr Patch [Habitrol] 1 patch TRANSDERM DAILY 14 Days #14 patch 01/14/24 [Rx] traZODone HCL [Desyrel] 50 mg PO HS PRN 30 Days #30 tab 01/14/24 [Rx] Follow up Appointment(s)/Referral(s): Leonides Quinones [Outside] - 1 Week () Chery Swain MD [Primary Care Provider] - 1 Week Patient Instructions/Handouts: How to Stop Smoking (DC), Depression (DC), Methamphetamine Abuse (DC) Activity/Diet/Wound Care/Special Instructions: Avoid the use of street drugs and alcohol. Take all medications as prescribed. When you are in need of refills on your medications, please contact your medical provider and/or outpatient psychiatrist/provider to have this done. Please go to your scheduled outpatient appointment for aftercare treatment. If symptoms return or become worse, call the crisis line at and/or go to the nearest emergency room for evaluation. National Suicide Hotline 988 Discharge Disposition: HOME SELF-CARE
== END 2024-01-14 16:29 | disposition home or self-care (01) | DRG 881 ==
LOC: EC 08:17 → 3MHU 14:15
PROVIDERS: ADMIT Psychiatry & Neurology Psychiatry; ATTEND Psychiatry & Neurology Psychiatry
DX: F32.9 Major depressive disorder, single episode, unspecified (principal); R45.851 Suicidal ideations; F43.10 Post-traumatic stress disorder, unspecified; J45.909 Unspecified asthma, uncomplicated; N76.0 Acute vaginitis; Z63.0 Problems in relationship with spouse or partner; E07.9 Disorder of thyroid, unspecified; R45.87 Impulsiveness; Z63.5 Disruption of family by separation and divorce; F15.10 Other stimulant abuse, uncomplicated; F17.200 Nicotine dependence, unspecified, uncomplicated; F41.9 Anxiety disorder, unspecified; Z79.890 Hormone replacement therapy; Z79.899 Other long term (current) drug therapy; Z91.51 Personal history of suicidal behavior; Z71.51 Drug abuse counseling and surveillance of drug abuser; Z71.89 Other specified counseling
CPT/HCPCS: 80053; 80061; 80306; 81001; 81025; 82075; 83036; 84443; 85025; 87635; 99285